=== PATIENT | male | born 1950 | race Hispanic/Latino ===

== ENCOUNTER 2020-10-24 06:46 | Day surgery (SDC) | payer OTHER ==
[2020-10-20 15:13] LABS: Basophils % 0.4 % (0-1.3); Hematocrit 46.8 % (39.6-49.0); Lymphocytes % 28.6 % (15.3-44.8); MPV 8.4 fL (7.6-11.3); RBC Red Blood Cell Count 5.28 M/uL (4.33-5.43)
[2020-10-20 15:20] LABS: Potassium 4.3 mmol/L (3.5-5.1)
--- NOTE | 2020-10-20 15:20 | RAD REPORT ---
EXAM DESCRIPTION: RAD - Chest Pa And Lat (2 Views) - 10/20/2020 3:05 pm CLINICAL HISTORY: preop COMPARISON: No comparisons FINDINGS: No evidence of edema or pneumonia. The heart size is within normal limits.No acute osseous abnormality. No significant pleural effusions or pneumothorax. IMPRESSION: No acute cardiopulmonary disease.
[2020-10-24] MEDS ORDERED: CEFAZOLIN/SWI 1gm 1 GM/10 ML SYR ONE (07:30)
[2020-10-24] MEDS ORDERED: NA CHLORIDE 0.9% 1,000 ML ONE (07:30)
[2020-10-24] MEDS ORDERED: MIDAZOLAM HCL 2 MG/2 ML INJ ONE (08:47)
[2020-10-24] MEDS ORDERED: LIDOCAINE 1% MPF 5 ML VIAL ONE (08:53)
[2020-10-24] MEDS ORDERED: FENTANYL CITR 100 MCG/2 ML ONE (08:53)
[2020-10-24] MEDS ORDERED: propofoL 200 MG/20 ML VIAL IV ONE (08:53)
[2020-10-24] MEDS ORDERED: ONDANSETRON 4 MG/2 ML VIAL ONE (09:01)
--- NOTE | 2020-10-24 09:01 | P.BOP ---
Preoperative diagnosis: tender perineal mass Postoperative diagnosis: same Primary procedure: Excisional biopsy of tender perineal subQ mass 4 x 2.5 cm Estimated blood loss: <10cc Specimen: mass Anesthesia: General Complications: None Transferred to: Recovery Room Condition: Good
[2020-10-24] MEDS ORDERED: KETOROLAC 30 MG/ML INJ ONE (09:02)
[2020-10-24 09:39] VITALS: O2SAT 98
[2020-10-24] MEDS ORDERED: CODEINE 30MG/APAP 300MG TAB PO ONE (09:59)
[2020-10-24] MEDS ORDERED: CODEINE 30MG/APAP 300MG TAB ONE (10:08)
[2020-10-24 10:30] VITALS: BP 107/64; TEMP 97.6
--- NOTE | 2020-10-24 10:45 | DS ---
Diagnosis: Tender perineal mass. Procedure: Excisional biopsy of tender perineal subcutaneous mass. Disposition: Home. Activity: As tolerated. No heavy lifting. Plan: Follow up in my office in 1 week. Call for appointment at [phone]. Keep area dry for 48 miriam rs, then may shower with dressings off and apply triple antibiotics. Medications: Include Tylenol No.3 q.4 hours p.r.n. pain, Bactrim DS p.o. b.i.d. CASSANDRA/IHSAN Voice ID: [id number] Report ID: [id number]
--- NOTE | 2020-10-24 11:00 | OP ---
Date of Procedure: 10/24/2020 Surgeon: Joe Steele MD Preoperative Diagnosis: Tender perineal mass. Postoperative Diagnosis: Tender perineal mass. Procedure: Excisional biopsy of tender perineal subcutaneous mass 4 x 2.5 cm. Estimated Blood Loss: Less than 10 mL. Specimen: Mass. Anesthesia: General plus local. Complications: None. Findings: Peritoneal mass not only pushing the skin subcutaneous tissue. This was closed in layers. Indication: This is the case of a 70-year-old patient with a perineal mass increasing in size, came in discomfort. The patient wanted that excised. Benefits, alternatives, and risks of excisional bio psy were fully explained, which include, but not limited to infection, bleeding, damage to adjacent s tructures, anesthesia complication, recurrence, MT and even . He also understands this may not relieve any symptoms. He might need more than one surgical intervention. He understood, signed a co nsent. Procedure In Detail: The patient was brought to the operating room, placed in supine position. Anes thesia was done without complication. The area was previously marked by me and the patient in the ho lding room, so we prepped the area in lithotomy position and time-out was done. A wedge incision was made in the skin to include the skin, the subcutaneous mass and then we with blunt dissection went d eep inside in that perineum and found this mass present. Mass was completely excised. Area was irri gated. Due to the cavity in that area, we proceeded to close this in layers with 3-0 chromic in 2 la yers and then the skin with 3-0 nylon. Before that, we injected local anesthetic, obtained hemostasi s and irrigated the area. The patient tolerated the procedure well. Sponge counts and instrument co unts correct. The patient was sent to recovery in stable condition. CASSANDRA/JUNIEL Voice ID: [id number] Report ID: [id number]
== END 2020-10-24 10:08 | disposition home or self-care (01) ==
LOC: OR 06:46
PROVIDERS: ATTEND Surgery
PROC: 0JBB0ZZ Excision of Perineum Subcutaneous Tissue and Fascia, Open Approach (ICD-10-PCS; principal; 2020-10-24 08:30)
DX: R22.2 Localized swelling, mass and lump, trunk (principal); Z20.822 Contact with and (suspected) exposure to COVID-19
CPT/HCPCS: 93005; 85025; 80048; 36415; 82947 ×2; 88304; 71046; 11424; U0003; J2704; J2250; J3010; J0690; J7030; J2405; 88305

== ENCOUNTER 2021-11-26 13:55 | Inpatient (IN) | payer OTHER ==
--- OUTSIDE RECORDS SUMMARY | 2021-11-26 13:58 | XMS REPORT | Continuity of Care Document ---
:1950 Author Organization [facility] t Address [address] [place] [address] Care Team Providers Name Role Phone Jaison Roth Neo Primary Care Physician Robe Cardenas Attending Clinician Unavailable GHULAM NEWSOME Attending Clinician Unavailable Nurse, Nadege Pob Immunization Attending Clinician Unavailable Ghulam Newsome DO Attending Clinician Darlene Evans Attending Clinician Doctor Unassigned, [place] Attending Clinician Unavailable Lilian Ruby Attending Clinician Provider, [facility] Attending Clinician Unavailable Kelly Garcia Attending Clinician KELLY CABA Attending Clinician Unavailable Payers Payer Name Policy Type Policy Number Effective Date Expiration Date Jose houser Outlisten [id number] 2020 00:00:00 SPRING Problems Condition Condition Condition Status Onset Resolution Last Treating Co mments Source Name Details Category Date Date Treatment Clinician Date No known No known Disease Unive rs active active ity of problems problems [facility] Allergies, Adverse Reactions, Alerts Allergy Allergy Status Severity Reaction(s) Onset Inactive Treating Comm ents Source Name Type Date Date Clinician NO KNOWN Drug Active Univers ALLERGIE Class ity of S [facility] Social History Social Habit Start Date Stop Date Quantity Comments Source Exposure to Not sure [facility] SARS-CoV-2 (event) Medica l Branch Tobacco use and 2020-09-18 2020-09-18 Never used [facility] exposure 00:00:00 00:00:00 [facility] Sex Ass[birth year] [facility] 00:00:00 00:00:00 Medical Branch Smoking Status Start Date Stop Date Source Never smoker [facility] Branch Medications Ordered Filled Start Stop Current Ordering Indication Dosage Frequency Signature Comments Components Source Medication Medication Date Date Medication? Clinician (SIG) Name Name traMADoL 50 0 Yes 4647 50mg Take 1 Univ ers mg tablet 6-27 tablet by ity o f 00:00: mouth [place] 00 every 6 Medical (six) Branch hours as needed for Pain (scale 4-6) for up to 15 doses. Indication s: acute pain traMADoL 50 0 Yes 4647 50mg Take 1 Univ ers mg tablet 6-27 tablet by ity o f 00:00: mouth [place] 00 every 6 Medical (six) Branch hours as needed for Pain (scale 4-6) for up to 15 doses. Indication s: acute pain traMADoL 50 Yes 4647 50mg Take 1 Univ ers mg tablet 6-27 tablet by ity o f 00:00: mouth [place] 00 every 6 Medical (six) Branch hours as needed for Pain (scale 4-6) for up to 15 doses. Indication s: acute pain traMADoL 50 Yes 4647 50mg Take 1 Univ ers mg tablet 6-27 tablet by ity o f 00:00: mouth [place] 00 every 6 Medical (six) Branch hours as needed for Pain (scale 4-6) for up to 15 doses. Indication s: acute pain atorvastati Yes 10mg Take 10 mg Univers n 10 mg 6-10 by mouth ity of tablet 00:00: daily. Medical Branch gabapentin Yes TAKE 1 Unive rs 300 mg 6-10 CAPSULE BY ity of capsule 00:00: [place]OUTH [place]CE [place] 00 DAILY FOR Medical 90 DAYS Branch lisinopriL Yes 20mg Take 20 mg U nivers 20 mg 6-10 by mouth 2 ity of tablet 00:00: (two) [place] 00 times Medical daily. Branch atorvastati Yes 10mg Take 10 mg Univers n 10 mg 6-10 by mouth ity of tablet 00:00: daily. Medical Branch gabapentin Yes TAKE 1 Unive rs 300 mg 6-10 CAPSULE BY ity of capsule 00:00: [place]TH [place]CE [place] DAILY FOR [place] 90 DAYS Branch lisinopriL Yes 20mg Take 20 mg U nivers 20 mg 6-10 by mouth 2 ity of tablet 00:00: (two) 00 times Medical daily. Branch atorvastati 2020-0 Yes 10mg Take 10 mg Univers n 10 mg 6-10 by mouth ity of tablet 00:00: daily. Medical Branch gabapentin 2020-0 Yes TAKE 1 Unive rs 300 mg 6-10 CAPSULE BY ity of capsule 00:00: [place]TH [place]CE [place] DA[place] FOR [place] 90 DAYS Branch lisinopriL 2020-0 Yes 20mg Take 20 mg U nivers 20 mg 6-10 by mouth 2 ity of tablet 00:00: (two) 00 times Medical daily. Branch atorvastati 2020-0 Yes 10mg Take 10 mg Univers n 10 mg 6-10 by mouth ity of tablet 00:00: daily. Medical Branch gabapentin 2020-0 Yes TAKE 1 Unive rs 300 mg 6-10 CAPSULE BY ity of capsule 00:00: [place]CE [place] DA[place] FOR [place] 90 DAYS Branch lisinopriL 2020-0 Yes 20mg Take 20 mg U nivers 20 mg 6-10 by mouth 2 ity of tablet 00:00: (two) 00 times Medical daily. Branch atorvastati 2020-0 Yes 10mg Take 10 mg Univers n 10 mg 6-10 by mouth ity of tablet 00:00: daily. Medical Branch gabapentin 2020-0 Yes TAKE 1 Unive rs 300 mg 6-10 CAPSULE BY ity of capsule 00:00: [place]TH ONCE [place] DAILY FOR [place] 90 DAYS Branch lisinopriL 2020-0 Yes 20mg Take 20 mg U nivers 20 mg 6-10 by mouth 2 ity of tablet 00:00: (two) 00 times Medical daily. Branch atorvastati 2020-0 Yes 10mg Take 10 mg Univers n 10 mg 6-10 by mouth ity of tablet 00:00: daily. Medical Branch gabapentin 2020-0 Yes TAKE 1 Unive rs 300 mg 6-10 CAPSULE BY ity of capsule 00:00: [place]OUTH ONCE [place] 00 DAILY FOR Medical 90 DAYS Branch lisinopriL 2020-0 Yes 20mg Take 20 mg U nivers 20 mg 6-10 by mouth 2 ity of tablet 00:00: (two) 00 times Medical daily. Branch Immunizations Ordered Filled Immunization Date Status Comments [facility] e Immunization Name Name SARS-COV-2 COVID-19 2021-02-28 Completed Unive rsity of PFIZER VACCINE 00:00:00 [facility] SARS-COV-2 COVID-19 2020-06-07 Completed Unive rsity of PFIZER VACCINE 00:00:00 [facility] SARS-COV-2 COVID-19 2020-06-07 Completed Unive rsity of PFIZER VACCINE 00:00:00 [facility] SARS-COV-2 COVID-19 2020-06-07 Completed Unive rsity of PFIZER VACCINE 00:00:00 [facility] SARS-COV-2 COVID-19 2020-06-07 Completed Unive rsity of PFIZER VACCINE 00:00:00 [facility] SARS-COV-2 COVID-19 2020-06-07 Completed Unive rsity of PFIZER VACCINE 00:00:00 [facility] SARS-COV-2 COVID-19 2020-06-07 Completed Unive rsity of PFIZER VACCINE 00:00:00 [facility] SARS-COV-2 COVID-19 2020-05-17 Completed Unive rsity of PFIZER VACCINE 00:00:00 [facility] SARS-COV-2 COVID-19 2020-05-17 Completed Unive rsity of PFIZER VACCINE 00:00:00 [facility] SARS-COV-2 COVID-19 2020-05-17 Completed Unive rsity of PFIZER VACCINE 00:00:00 [facility] SARS-COV-2 COVID-19 2020-05-17 Completed Unive rsity of PFIZER VACCINE 00:00:00 [facility] SARS-COV-2 COVID-19 2020-05-17 Completed Unive rsity of PFIZER VACCINE 00:00:00 [facility] SARS-COV-2 COVID-19 2020-05-17 Completed Unive rsity of PFIZER VACCINE 00:00:00 [facility] Vital Signs Vital Name Observation Time Observation Value Comments Source Systolic blood 2020-09-19 152 mm[Hg] University of pressure 03:16:00 [facility] Diastolic blood 2020-09-19 86 mm[Hg] University o f pressure 03:16:00 [facility] Heart rate 2020-09-19 64 /min University 03:16:00 [facility] Body temperature 2020-09-19 36.44 Fiorella [facility] 03:16:00 [facility] Respiratory rate 2020-09-19 18 /min Simultaneous [facility] 03:16:00 filing. User may [place] [facility] not have seen Branch previous data. Oxygen saturation 2020-09-19 96 /min Simultaneous [facility] in Arterial blood 03:16:00 filing. User may [place] [facility] by Pulse oximetry not have seen Branch previous data. Body height 2020-09-19 170.2 cm [facility] 00:39:00 [facility] Body weight 2020-09-19 93.441 kg University 00:39:00 [facility] BMI 2020-09-19 32.26 kg/m2 University 00:39:00 [facility] Systolic blood 2020-09-19 150 mm[Hg] University of pressure 00:12:00 [facility] Diastolic blood 2020-09-19 82 mm[Hg] [place] o f pressure 00:12:00 [facility] Heart rate 2020-09-19 69 /min [facility] 00:07:00 [facility] Body temperature 2020-09-19 36.67 Fiorella University 00:07:00 [facility] Respiratory rate 2020-09-19 16 /min [facility] 00:07:00 [facility] Body height 2020-09-19 170.2 cm [facility] 00:07:00 [facility] Body weight 2020-09-19 93.441 kg [facility] 00:07:00 [facility] BMI 2020-09-19 32.26 kg/m2 [facility] 00:07:00 [facility] Oxygen saturation 2020-09-19 97 /min [facility] in Arterial blood 00:07:00 [facility] by Pulse oximetry [place] Procedures Procedure Date / Time Performing Clinician Source Performed SARS-COV-2 COVID-19 2021-02-28 22:40:58 Doctor Unassigned, [facility] VACCINE,0.3ML,IM (PFIZER) [place] Med[facility] l [facility] REFERRAL- REQUEST/RESPONSE 2020-09-27 05:01:00 Doctor Unassigned , [facility] [place] [facility] XR KNEE 3 VW RIGHT 2020-09-19 02:34:41 Lilian Pereira [facility] XR TIBIA FIBULA 2 VW RIGHT 2020-09-19 02:34:41 Lilian Pereira [facility] NOTICE OF PRIVACY 2020-09-19 00:36:02 Doctor Unassigned, [facility] PRACTICES [place] [facility] PATIENT FINANCIAL 2020-09-19 00:03:03 [facility]IC[facility] [place] [facility] NO SHOW OR MISSED 2020-09-19 00:02:30 Doctor Unassigned, [facility] APPOINTMENT POLICY [place] [facility] h ACKNOWLEDGEMENT NOTICE OF PRIVACY 2020-09-19 00:01:29 Doctor Unassigned, [facility] PRACTICES [place] [facility] CONSENT/REFUSAL FOR 2020-09-19 00:01:02 Doctor Unasssvetlana, [facility] DIAGNOSIS AND TREATMENT [place] [facility] ASSIGNMENT OF BENEFITS 2020-09-19 00:00:31 Doctor Unassigned, Un [facility] [place] [facility] Encounters Start End Encounter Admission Attending Care Care Encounter Source Date/Time Date/Time Type Type Clinicians Facility Department ID 2021-11-23 Outpatient Theresa STCHRISSVA [facility] [id number] Common 10:26:04 Robe [id number] [facility] 2021-01-23 Emergency [facility] [id number] Univers 04:09:32 [facility] 2021-02-28 2021-02-28 Outpatient Byron NEWSOME [facility] [id number] Univers 16:20:00 16:20:00 GHULAM live [facility] 2021-02-28 2021-02-28 Imm/Inj Nurse, Adc Pob Immunization [facility] [id number] Univers 16:16:55 16:17:27 [facility]ul[id number] [id number] [place] MONREAL [phone] Ny dical NAL [address] [place] [address] 2020-10-20 2020-10-20 Letter CORRINE Evans [id number] Univers 00:00:00 00:00:00 (Out) Darlene MENDEZ [id number] i ty of [facility] [id number] Adrian as [phone] [facility] 043 Branch 2020-09-27 2020-09-27 Orders Doctor CORRINE [id number] Univers 00:00:00 00:00:00 Only Unassigned, VANESSA [id number] ity of [place] [facility] [id number] Adrian as [id number] [facility] 009 Branch 2020-09-18 2020-09-18 Emergency [facility], [facility] [id number] Univers 19:38:00 22:29:00 Lilian Box [id number] ity of [place] [id number] [place] [facility] [id number] [facility] 084 Branch 2020-09-18 2020-09-18 Urgent Provider, [facility] [id number] Univers 19:03:12 19:23:12 Vianey Caba Kelly [facility] [id number] ity of [place] [id number] Adrian as Professio [id number] [facility] [address] [place] 2020-09-18 2020-09-18 Outpatient Byron CABA [facility] [id number] Univers 19:00:00 19:00:00 KELLY ity of [facility] 2020-09-18 2020-09-18 Orders Doctor CORRINE [id number] Univers 00:00:00 00:00:00 Only Unassigned, VANESSA [id number] ity of [place] [facility] [id number] Adrian as [phone] [facility] 009 [place] Results This patient has no known results.
[2021-11-26 15:04] LABS: Urine Blood 3+ (Negative); Urine Glucose Negative (Negative); Urine Protein 1+ (Negative); Urine Specific Gravity 1.025 (1.005-1.030); Urine pH 5.5 (5.0-7.0)
[2021-11-26 15:16] LABS: Absolute Lymphocytes (CBC) 1.1 K/uL (0.7-4.9); Hematocrit 43.5 % (39.6-49.0); Lymphocytes % 7.2 % (15.3-44.8); MCV 89.3 fL (80-100); MPV 8.8 fL (7.6-11.3); RBC Red Blood Cell Count 4.87 M/uL (4.33-5.43)
[2021-11-26 15:20] LABS: Protime INR 1.29
[2021-11-26 15:31] LABS: Albumin 3.5 g/dL (3.4-5.0); Bilirubin Total 1.4 mg/dL (0.2-1.0); Potassium 3.7 mmol/L (3.5-5.1); Protein, Total 7.3 g/dL (6.4-8.2)
[2021-11-26 15:32] LABS: Urine Bacteria 20-50 /HPF (<20); Urine Mucus 3+ /HPF (None Seen); Urine RBC >50 /HPF (None Seen); Urine WBC Clump Few /HPF (None Seen)
[2021-11-26] MEDS ORDERED: CEFTRIAXONE 1000 MG/VIAL ONE (16:01)
[2021-11-26] MEDS ORDERED: NA CHLORIDE 0.9% 50 ML ONE (16:02)
[2021-11-26 17:16] LABS: SARS-CoV-2 Antigen Rapid Res Negative (Negative)
--- NOTE | 2021-11-26 17:38 | EDPHYS ---
Physician Documentation [facility] Name: Jaime Cid Age: 71 yrs Sex: Male : 1950 Arrival Date: 11/26/2021 Time: 13:56 Bed 8 Private MD: Robe Cardenas ED Physician Ashwin Rodney HPI: 11/26 14:25 This 71 yrs old Male presents to ER via Unassigned with complaints of Fever - cp post biopsy 11/23, chills. 14:25 The patient reports fever, that was measured at 101.1 degrees Fahrenheit. cp 14:25 Onset: The symptoms/episode began/occurred today. Associated signs and symptoms: cp Pertinent positives: chills, Pertinent negatives: abdominal pain, chest pain, cough, diarrhea, vomiting. Severity of symptoms: in the emergency department the symptoms have improved mildly. Patient reports having biopsy of prostate performed by DR Harmon this past . Initially noticed blood in urine after procedure which he was told is normal, denies blood in urine now. Historical: - Allergies: 14:33 No Known Allergies; em6 - Immunization history:: Adult Immunizations unknown. - Social history:: Smoking status: unknown. ROS: 14:30 Constitutional: Positive for chills, Negative for fever, poor PO intake. cp 14:30 Respiratory: Negative for cough, shortness of breath, wheezing. cp 14:30 Abdomen/GI: Negative for abdominal pain, vomiting, diarrhea, constipation. 14:30 Cardiovascular: Negative for chest pain, edema, palpitations. cp 14:30 Eyes: Negative for injury, pain, redness, and discharge. cp 14:30 ENT: Negative for drainage from ear(s), ear pain, sore throat, difficulty swallowing, difficulty handling secretions. 14:30 Back: Negative for pain at rest, pain with movement. 14:30 : Negative for hematuria, burning with urination, testicular pain 14:30 Skin: Negative for cellulitis, rash. 14:30 Neuro: Negative for altered mental status, dizziness, headache, weakness. 14:30 All other systems are negative. Exam: 14:35 Constitutional: The patient appears in no acute distress, alert, awake, cp non-diaphoretic, non-toxic, well developed, well nourished. 14:35 Head/Face: Normocephalic, atraumatic. cp 14:35 Eyes: Periorbital structures: appear normal, Conjunctiva: normal, no exudate, no injection, Sclera: no appreciated abnormality, Lids and lashes: appear normal, bilaterally. 14:35 ENT: External ear(s): are unremarkable, Nose: is normal, Mouth: Lips: moist, Oral mucosa: pink and intact, moist, Posterior pharynx: Airway: no evidence of obstruction, patent, swelling, is not appreciated, erythema, is not appreciated, exudate, is not appreciated. 14:35 Neck: ROM/movement: is normal, is supple, without pain, no range of motions limitations, no meningismus. 14:35 Chest/axilla: Inspection: normal, Palpation: is normal, no crepitus, no tenderness. 14:35 Cardiovascular: Rate: normal, Rhythm: regular, Edema: is not appreciated, JVD: is not appreciated. 14:35 Respiratory: the patient does not display signs of respiratory distress, Respirations: normal, no use of accessory muscles, no retractions, labored breathing, is not present, Breath sounds: are clear throughout, no decreased breath sounds, no stridor, no wheezing. 14:35 Abdomen/GI: Inspection: abdomen appears normal, Bowel sounds: active, all quadrants, Palpation: abdomen is soft and non-tender, in all quadrants. 14:35 Back: CVA tenderness, is absent. 14:35 Skin: cellulitis, is not appreciated, no rash present. 14:35 Neuro: Orientation: to person, place \T\ time. Mentation: is normal, Motor: moves all fours, strength is normal, Sensation: is normal. 15:09 ECG was reviewed by the Attending Physician. cp Vital Signs: 14:19 BP 130 / 77; Pulse 88; Resp 16; Temp 98.2(TE); Pulse Ox 98% on R/A; hb 15:30 BP 121 / 72; Pulse 72; Resp 17; Pulse Ox 98% ; em6 16:30 BP 117 / 61; Pulse 78; Resp 20; Pulse Ox 96% on R/A; em6 17:30 BP 122 / 70; Pulse 90; Resp 17; Pulse Ox 97% on R/A; em6 18:47 BP 125 / 78; Pulse 85; Resp 19; Pulse Ox 96% ; em6 19:19 BP 125 / 70; Pulse 91; Resp 18; Pulse Ox 96% on R/A; tw5 20:23 Temp 103.2(O); tw5 MDM: 14:24 Patient medically screened. cp 15:00 Differential diagnosis: bronchitis, pneumonia UTI, sepsis. 16:15 Data reviewed: vital signs, nurses notes, lab test result(s), EKG. 16:15 Test interpretation: by ED physician or midlevel provider: ECG. 16:30 ED course: Daughter reports patient did not have rectal swab performed prior to cp prostate biopsy procedure. Patient did take course of prescribed antibiotics. 16:37 Physician consultation: Henry Harmon MD was contacted at 16:30, regarding patient's cp condition, wants patient to be admitted for IV antibiotics. 16:38 Physician consultation: Robe Cardenas MD was called at 16:39, left message on voicemail. cp 17:11 ED course: left message on voicemail of DR Cardenas. 17:30 Physician consultation: Robe Cardenas MD was contacted at 17:30, regarding admission, to the medical/surgical unit. patient's condition. 11/26 14:27 Order name: Blood Culture Adult (2) 11/26 14:27 Order name: CBC with Diff; Complete Time: 15:37 11/26 15:37 Interpretation: Normal except: WBC 16.00; KENZIE% 84.5; LYM% 7.2; NEUT A 13.5. 11/26 14:27 Order name: CMP; Complete Time: 15:37 11/26 15:37 Interpretation: Normal except: NA 133; GLUC 113; BUN 21; GFR 86; BILIT 1.4; GLOB 3.8; cp A/G 0.9. 11/26 14:27 Order name: Lactate; Complete Time: 16:12 11/26 16:13 Interpretation: Reviewed. 11/26 14:27 Order name: Protime (+inr); Complete Time: 15:37 11/26 15:38 Interpretation: Abnormal: PT 14.3. 11/26 14:27 Order name: Ptt, Activated; Complete Time: 15:37 11/26 14:27 Order name: Urine Culture 11/26 14:27 Order name: Urine Microscopic Only; Complete Time: 15:37 cp 11/26 15:38 Interpretation: Normal except: UWBC >50; URBC >50; UBACT 20-50; MUCUS 3+; UWBC Clump cp Few. 11/26 15:04 Order name: Urine Dipstick-Ancillary; Complete Time: 15:37 EDMS 11/26 15:38 Interpretation: Normal except: UBLD 3+; UPROT 1+; UESTR 1+. cp 11/26 15:21 Order name: Glucose, Ancillary Testing; Complete Time: 15:37 EDMS 11/26 16:33 Order name: SARS RAPID; Complete Time: 20:21 cp 11/26 17:52 Order name: Basic Metabolic Panel EDMS 11/26 17:52 Order name: Basic Metabolic Panel EDMS 11/26 17:52 Order name: CBC with Automated Diff EDMS 11/26 14:27 Order name: Accucheck; Complete Time: 15:09 cp 11/26 14:27 Order name: Cardiac monitoring; Complete Time: 15:09 cp 11/26 14:27 Order name: EKG - Nurse/Tech; Complete Time: 15:09 cp 11/26 14:27 Order name: IV Saline Lock - Large Bore; Complete Time: 15:09 cp 11/26 14:27 Order name: Labs collected and sent; Complete Time: 15:09 cp 11/26 14:27 Order name: O2 Per Protocol; Complete Time: 14:54 cp 11/26 14:27 Order name: O2 Sat Monitoring; Complete Time: 14:54 cp 11/26 14:27 Order name: Urine Dipstick-Ancillary (obtain specimen); Complete Time: 15:30 cp 11/26 17:52 Order name: CBC with Automated Diff EDMS 11/26 17:58 Order name: 60g Consistent Carbohydrate (ADA 1800/2000) EDMS EC:09 Rate is 74 beats/min. Rhythm is regular. SC interval is normal. QRS interval is normal. cp QT interval is normal. T waves are Inverted in lead aVR. Interpreted by me. Reviewed by me. Administered Medications: 15:55 Drug: Rocephin - (cefTRIAXone) 1 grams Route: IVPB; Infused Over: 30 mins; Site: right em6 antecubital; 16:27 Follow up: IV Status: Completed infusion; IV Intake: 50ml em6 Disposition: 11/27 07:07 Co-signature as Attending Physician, Ashwin Rodney MD I agree with the assessment and kdr plan of care. Disposition Summary: 11/26/21 17:38 Hospitalization Ordered Hospitalization Status: Inpatient Admission cp Provider: Robe Cardenas cp Location: Telemetry/MedSur (Inpatient) cp Condition: Stable cp Problem: new cp Symptoms: have improved cp Bed/Room Type: Standard cp Room Assignment: 428(11/26/21 19:59) cg Diagnosis - UTI/ Urinary tract infection, site not specified cp Forms: - Medication Reconciliation Form cp - SBAR form cp Signatures: Dispatcher [employer] EDMS Ashwin Rodney MD MD [facility] Lavell Moran, [employer]-C [employer]-Cla1 Eris Pierce PA PA cp Bre Calderon, RN RN cg Florinda Steele RN RN em6 Corrections: (The following items were deleted from the chart) 11/26 15:37 15:37 Normal except: WBC 16.00. cp cp 17:58 17:52 Regular ordered. EDMS EDMS 19:59 17:38 cp cg
--- NOTE | 2021-11-26 17:38 | ER ---
Nurse's Notes [facility] Name: Jaime Cid Age: 71 yrs Sex: Male : 1950 Arrival Date: 11/26/2021 Time: 13:56 Bed 8 Private MD: Robe Cardenas Diagnosis: UTI/ Urinary tract infection, site not specified Presentation: 11/26 14:19 Chief complaint: Patient states: having a temperature of of 101.1 and was told to come em6 to the ER if the temperature was high after his biopsy on 10/24/21. he states having burning sensation while urinating and frequency. he took 500 mg of Tylenol. Coronavirus screen: At this time, the client does not indicate any symptoms associated with coronavirus-19. Ebola Screen: Patient negative for fever greater than or equal to 101.5 degrees Fahrenheit, and additional compatible Ebola Virus Disease symptoms. Initial Sepsis Screen: Does the patient meet any 2 criteria? No. Patient's initial sepsis screen is negative. Does the patient have a suspected source of infection? Yes: Other: prostate biopsy. Risk Assessment: Do you want to hurt yourself or someone else? Patient reports no desire to harm self or others. Onset of symptoms was November 26, 2021. 14:19 Method Of Arrival: Ambulatory em6 14:19 Acuity: ADITI 3 em6 Triage Assessment: 14:33 General: Appears in no apparent distress. comfortable, Behavior is calm, cooperative, em6 appropriate for age. Pain: Denies pain. Historical: - Allergies: 14:33 No Known Allergies; em6 - Immunization history:: Adult Immunizations unknown. - Social history:: Smoking status: unknown. Screenin:19 Abuse screen: Denies threats or abuse. Nutritional screening: No deficits noted. em6 Tuberculosis screening: No symptoms or risk factors identified. Fall Risk IV access (20 points). Assessment: 14:19 General: Appears in no apparent distress. comfortable, Behavior is calm, cooperative, em6 appropriate for age, Smells of. Pain: Denies pain. Neuro: Woodruff Agitation-Sedation Scale (RASS): 0 - Alert and Calm Level of Consciousness is awake, alert, obeys commands, Oriented to person, place, time, situation. Cardiovascular: Heart tones present Capillary refill < 3 seconds Patient's skin is warm and dry. Respiratory: Airway is patent is compromised Respiratory effort is even, unlabored, Respiratory pattern is regular, symmetrical, Breath sounds are clear bilaterally. GI: Abdomen is distended. : Reports burning with urination, urgency. EENT: No signs and/or symptoms were reported regarding the EENT system. Derm: No signs and/or symptoms reported regarding the dermatologic system. Musculoskeletal: Circulation, motion, and sensation intact. Range of motion: intact in all extremities. 15:30 Reassessment: Patient appears in no apparent distress at this time. No changes from em6 previously documented assessment. Patient is alert, oriented x 3, equal unlabored respirations, skin warm/dry/pink. 16:30 Reassessment: Patient appears in no apparent distress at this time. No changes from em6 previously documented assessment. Patient and/or family updated on plan of care and expected duration. Pain level reassessed. Patient is alert, oriented x 3, equal unlabored respirations, skin warm/dry/pink. 17:30 Reassessment: Patient appears in no apparent distress at this time. No changes from em6 previously documented assessment. Patient and/or family updated on plan of care and expected duration. Pain level reassessed. Patient is alert, oriented x 3, equal unlabored respirations, skin warm/dry/pink. 18:45 Reassessment: Patient appears in no apparent distress at this time. No changes from em6 previously documented assessment. Patient and/or family updated on plan of care and expected duration. Pain level reassessed. Patient is alert, oriented x 3, equal unlabored respirations, skin warm/dry/pink. 19:19 General: Appears in no apparent distress. comfortable, Behavior is calm, cooperative, tw5 Daughter at the bedside "He is still having chills but otherwise he has been good.". Pain: Denies pain. 20:23 General: Tylenol being administered per [employer] orders. tw5 Vital Signs: 14:19 BP 130 / 77; Pulse 88; Resp 16; Temp 98.2(TE); Pulse Ox 98% on R/A; hb 15:30 BP 121 / 72; Pulse 72; Resp 17; Pulse Ox 98% ; em6 16:30 BP 117 / 61; Pulse 78; Resp 20; Pulse Ox 96% on R/A; em6 17:30 BP 122 / 70; Pulse 90; Resp 17; Pulse Ox 97% on R/A; em6 18:47 BP 125 / 78; Pulse 85; Resp 19; Pulse Ox 96% ; em6 19:19 BP 125 / 70; Pulse 91; Resp 18; Pulse Ox 96% on R/A; tw5 20:23 Temp 103.2(O); tw5 ED Course: 13:56 Patient arrived in ED. am2 13:57 Robe Cardenas MD is Private Physician. am2 14:13 Eris Pierce PA is PHCP. cp 14:13 Ashwin Rodney MD is Attending Physician. cp 14:20 Arm band placed on. hb 14:29 Valentino Mcmahan RN is Primary Nurse. jd3 14:33 Triage completed. em6 14:34 Patient has correct armband on for positive identification. Bed in low position. Call em6 light in reach. Side rails up X 1. Pulse ox on. NIBP on. Warm blanket given. 17:37 Robe Cardenas MD is Hospitalizing Provider. cp 19:02 Primary Nurse role handed off by Valentino Mcmahan, RN tw5 19:02 Shantell Estes is Primary Nurse. tw5 19:19 Awaiting bed assignment. tw5 19:19 IV is intact, ER initiated by prior shift. 20 G RAC. tw5 19:30 role handed off by Florinda Steele, CARLOS MANUEL mw2 20:20 No provider procedures requiring assistance completed. Patient admitted, IV remains in ke1 place. Administered Medications: 15:55 Drug: Rocephin - (cefTRIAXone) 1 grams Route: IVPB; Infused Over: 30 mins; Site: right em6 antecubital; 16:27 Follow up: IV Status: Completed infusion; IV Intake: 50ml em6 Medication: 14:34 VIS not applicable for this client. em6 Intake: 16:27 IV: 50ml; Total: 50ml. em6 Outcome: 17:38 Decision to Hospitalize by Provider. cp 20:23 Admitted to Med/surg room 428, Report called to called report to [facility] tw5 20:23 Condition: stable 20:23 Instructed on the need for admit. 20:37 Patient left the ED. ke1 Signatures: Eris Pierce PA PA cp Baxter, Heather, RN RN Todd, Jacki am2 Marj, Valentino, RN RN jd3 [place], [place] 2 Shantell Estes 5 Wally Donaldson RN RN ke1 Florinda Steele RN RN em6
[2021-11-26] MEDS ORDERED: ONDANSETRON 4 MG/2 ML VIAL IV PRN (17:48)
[2021-11-26] MEDS ORDERED: D50W 25 GM/50 ML SYRINGE IV PRN (17:55)
[2021-11-26] MEDS ORDERED: GLUCAGON 1 MG/VIAL IM PRN (17:55)
[2021-11-26] MEDS ORDERED: D10W 125 ML IV PRN (19:33)
[2021-11-26] MEDS: ACETAMINOPHEN 500 MG TAB PO PRN (20:25)
[2021-11-26] MEDS ORDERED: ACETAMINOPHEN 500 MG TAB ONE (20:34)
[2021-11-26] MEDS: INSULIN -REGULAR HUMAN 50 UNIT/0.5 ML ML SQ SCH (21:00)
[2021-11-26] MEDS: NA CHLORIDE 0.9% 1,000 ML IV SCH (21:48)
[2021-11-26] MEDS: CEFTRIAXONE 1,000 MG in NA CHLORIDE 0.9% 50 ML IVPB SCH (21:48)
[2021-11-27] MEDS: ACETAMINOPHEN 500 MG TAB PO PRN ×2 (04:18→16:22)
[2021-11-27] MEDS: NA CHLORIDE 0.9% 1,000 ML IV SCH ×2 (04:18→23:23)
[2021-11-27 06:10] LABS: Absolute Lymphocytes (CBC) 0.8 K/uL (0.7-4.9); Hematocrit 41.6 % (39.6-49.0); MCV 89.6 fL (80-100); MPV 8.8 fL (7.6-11.3); RBC Red Blood Cell Count 4.64 M/uL (4.33-5.43)
[2021-11-27 06:27] LABS: Potassium 3.9 mmol/L (3.5-5.1)
[2021-11-27] MEDS: INSULIN -REGULAR HUMAN 50 UNIT/0.5 ML ML SQ SCH ×4 (07:30→20:53)
[2021-11-27] MEDS: CEFTRIAXONE 1,000 MG in NA CHLORIDE 0.9% 50 ML IVPB SCH ×2 (08:08→20:51)
[2021-11-27] MEDS: HYDROCODONE/APAP 7.5/325 MG TAB PO PRN ×2 (10:28→20:49)
--- NOTE | 2021-11-27 11:32 | P.HP ---
Certification for Inpatient Patient admitted to: Inpatient With expected LOS: >2 Midnights Patient will require the following post-hospital care: None Practitioner: I am a practitioner with admitting privileges, knowledge of patient current condition, hospital course, and medical plan of care. Services: Services provided to patient in accordance with Admission requirements found in Title 42 Section 412.3 of the Code of Federal Regulations Patient History Date of Service: 11/27/21 Primary Care Provider: Irma Dodson Reason for admission: post operative infection History of Present Illness: Patient of Mrs. Dodson. H/o htn, dm2, bph. He had a prostate biopsy on . The patient started having increased pain and fevers the last day. Came to the ER. Was found to have positive urine and a wbc of 16. Was admitted for this reason for iv antibiotics. Given this is a post op diabetic. Allergies No Known Allergies Allergy (Verified 10/20/20 14:34) Home Medications: Lisinopril [Zestril] 20 mg PO BID 10/20/20 Semaglutide [Rybelsus] 3 mg PO DAILY 10/20/20 Codeine/APAP [Tylenol W/Codeine #3 tab] 1 tab PO Q4HP PRN #20 tab 10/24/20 Sulfamethoxazole/Trimethoprim [Bactrim Ds Tablet] 1 each PO BID #12 tablet 10/24/20 Atorvastatin Calcium [Lipitor] 20 mg PO BEDTIME 11/26/21 Tamsulosin [Flomax] 0.4 mg PO BEDTIME 11/26/21 - Past Medical/Surgical History Has patient received pneumonia vaccine in the past: No Diabetic: Yes - Social History Smoking Status: Never smoker Alcohol use: No CD- Drugs: No Caffeine use: Yes Place of Residence: Home Review of Systems 10-point ROS is otherwise unremarkable Genitourinary: Other (pain at the groin ) Physical Examination - Vital Signs Temperature: 98.5 F Blood Pressure: 112/55 Pulse: 85 Respirations: 18 Pulse Ox (%): 97 - Physical Exam General: Alert, In no apparent distress HEENT: Atraumatic, PERRLA, Mucous membr. moist/pink, EOMI, Sclerae nonicteric Neck: Supple, 2+ carotid pulse no bruit, No LAD, Without JVD or thyroid abnormality Respiratory: Clear to auscultation bilaterally, Normal air movement Cardiovascular: Regular rate/rhythm, Normal S1 S2 Gastrointestinal: Normal bowel sounds, No tenderness Musculoskeletal: No tenderness Integumentary: No rashes Neurological: Normal gait, Normal speech, Normal strength at 5/5 x4 extr, Normal tone, Normal affect Lymphatics: No axilla or inguinal lymphadenopathy - Studies Laboratory Data (last 24 hrs) 11/26/21 14:48: PT 14.3 H, INR 1.29, APTT 32.0 11/26/21 14:48: Sodium 133 L, Potassium 3.7, BUN 21 H, Creatinine 0.96, Glucose 113 H, Total Bilirubin 1.4 H, AST 17, ALT 30, Alkaline Phosphatase 65 11/26/21 14:48: WBC 16.00 H, Hgb 14.6, Hct 43.5, Plt Count 170 Assessment and Plan - Problems (Diagnosis) (1) Prostatitis, acute Current Visit: Yes Status: Acute Plan: most likely post op. Have him on fluids and ceftriaxone. Will need to manage his pain better. Awaiting culture reports so we can discharge him on a specific antibiotic (2) HTN (hypertension) Current Visit: Yes Status: Acute Plan: currently low bp. Will hold his lisinopril. He usually takes 20mg. Will restart it if his bp starts trending upwards. (3) Diabetes mellitus with neuropathy Current Visit: Yes Status: Acute Plan: he only takes rybelsus and gabapentin. Will restart the gabapentin. Will start him on sliding scale insulin Qualifiers: Diabetes mellitus type: type 2 Diabetes mellitus longterm insulin use: without rat exterminator use Qualified Code(s): E11.40 - Type 2 diabetes mellitus with diabetic neuropathy, unspecified (4) BPH (benign prostatic hyperplasia) Current Visit: Yes Status: Acute Plan: restart his tamusolin Qualifiers: Lower urinary tract symptom presence: symptoms absent Qualified Code(s): N40.0 - Benign prostatic hyperplasia without lower urinary tract symptoms Discharge Plan: Home Plan to discharge in: 24 Hours - Advance Directives Does patient have a Living Will: No Does patient have a Durable POA for Healthcare: No - Code Status/Comfort Care Code Status Assessed: Yes Code Status: Full Code Critical Care: No Time Spent Managing Pts Care (In Minutes): 45
[2021-11-27] MEDS ORDERED: GLUCAGON 1 MG/VIAL IM PRN (11:35)
[2021-11-27] MEDS ORDERED: D50W 25 GM/50 ML SYRINGE IV PRN (11:35)
[2021-11-27] MEDS ORDERED: MORPHINE 2 MG/ML SYR IV PRN (11:35)
[2021-11-27] MEDS ORDERED: PNEUMOCOCCAL VACCINE 0.5 ML IMVAC ONE (14:00)
[2021-11-27] MEDS: ATORVASTATIN 20 MG TAB PO SCH (20:45)
[2021-11-27] MEDS: TAMSULOSIN 0.4 MG SR CAP PO SCH (20:45)
[2021-11-27] MEDS: GABAPENTIN 300 MG CAP PO SCH (20:46)
[2021-11-28] MEDS: ACETAMINOPHEN 500 MG TAB PO PRN ×3 (00:20→20:44)
[2021-11-28] MEDS: HYDROCODONE/APAP 7.5/325 MG TAB PO PRN ×2 (06:39→15:25)
[2021-11-28] MEDS: INSULIN -REGULAR HUMAN 50 UNIT/0.5 ML ML SQ SCH ×4 (07:30→21:00)
--- NOTE | 2021-11-28 07:50 | P.PN ---
Subjective Date of Service: 11/28/21 Primary Care Provider: Irma Dodson Chief Complaint: post operative infection Subjective: No new changes Review of Systems 10-point ROS is otherwise unremarkable General: Fever Genitourinary: Dysuria Physical Examination - Vital Signs Temperature: 99.1 F Blood Pressure: 112/60 Pulse: 71 Respirations: 16 Pulse Ox (%): 96 - Physical Exam General: Alert, In no apparent distress HEENT: Atraumatic, PERRLA, EOMI Neck: Supple, JVD not distended Respiratory: Clear to auscultation bilaterally, Normal air movement Cardiovascular: Regular rate/rhythm, Normal S1 S2 Gastrointestinal: Normal bowel sounds, No tenderness Musculoskeletal: No tenderness Integumentary: No rashes Neurological: Normal speech, Normal tone, Normal affect Lymphatics: No axilla or inguinal lymphadenopathy - Studies Microbiology Data (last 24 hrs): 11/26/21 15:03 Clean Catch Urine Danese Count - Final >100,000 CFU/ML. 11/26/21 15:03 Clean Catch Urine - Final Escherichia Coli Esbl Assessment And Plan - Current Problems (Diagnosis) (1) UTI (urinary tract infection) due to Enterococcus Current Visit: Yes Status: Acute Plan: esbl e coli in the urine culture. Will switch to meropenenem for 2 weeks. Will order a picc line and social service consult (2) Prostatitis, acute Current Visit: Yes Status: Acute Plan: most likely post op. Have him on fluids and ceftriaxone. Will need to manage his pain better. Awaiting culture reports so we can discharge him on a specific antibiotic (3) HTN (hypertension) Current Visit: Yes Status: Acute Plan: currently low bp. Will hold his lisinopril. He usually takes 20mg. Will restart it if his bp starts trending upwards. (4) Diabetes mellitus with neuropathy Current Visit: Yes Status: Acute Plan: he only takes rybelsus and gabapentin. Will restart the gabapentin. Will start him on sliding scale insulin Qualifiers: Diabetes mellitus type: type 2 Diabetes mellitus vermin exterminator insulin use: without vermin exterminator use Qualified Code(s): E11.40 - Type 2 diabetes mellitus with diabetic neuropathy, unspecified (5) BPH (benign prostatic hyperplasia) Current Visit: Yes Status: Acute Plan: restart his tamusolin Qualifiers: Lower urinary tract symptom presence: symptoms absent Qualified Code(s): N40.0 - Benign prostatic hyperplasia without lower urinary tract symptoms
[2021-11-28] MEDS: Meropenem 1,000 MG in NA CHLORIDE 0.9% 100 ML IV SCH ×2 (08:33→17:03)
[2021-11-28] MEDS: GABAPENTIN 300 MG CAP PO SCH ×2 (08:33→20:45)
[2021-11-28] MEDS: NA CHLORIDE 0.9% 1,000 ML IV SCH (11:04)
[2021-11-28] MEDS ORDERED: PNEUMOCOCCAL VACCINE 0.5 ML IMVAC ONE (12:00)
--- NOTE | 2021-11-28 14:35 | EKG ---
Test Date: 2021-11-26 Test Time: 15:05:38 Cadmium Plater: MEASUREMENT RESULTS: Intervals: Rate: 74 MO: 162 QRSD: 96 QT: 378 QTc: 419 [place]: P: 45 MO: 162 QRS: 23 T: 72 INTERPRETIVE STATEMENTS: Normal sinus rhythm Normal ECG Compared to ECG 10/20/2020 13:49:27 Sinus bradycardia no longer present Right bundle-branch block no longer present Electronically Signed On 11-28-21 14:31:46 CDT by Anshu Gutierrez
[2021-11-28] MEDS: TAMSULOSIN 0.4 MG SR CAP PO SCH (20:44)
[2021-11-28] MEDS: ATORVASTATIN 20 MG TAB PO SCH (20:45)
[2021-11-28 22:18] VITALS: O2SAT 96
[2021-11-29] MEDS: Meropenem 1,000 MG in NA CHLORIDE 0.9% 100 ML IV SCH ×3 (00:45→16:24)
[2021-11-29] MEDS: NA CHLORIDE 0.9% 1,000 ML IV SCH ×3 (00:45→14:30)
[2021-11-29] MEDS: HYDROCODONE/APAP 7.5/325 MG TAB PO PRN ×3 (00:53→16:24)
[2021-11-29 05:35] LABS: Absolute Lymphocytes (CBC) 0.9 K/uL (0.7-4.9); Hematocrit 36.5 % (39.6-49.0); Lymphocytes % 15.3 % (15.3-44.8); MCV 87.3 fL (80-100); MPV 8.9 fL (7.6-11.3); RBC Red Blood Cell Count 4.18 M/uL (4.33-5.43)
[2021-11-29 05:54] LABS: Albumin 2.6 g/dL (3.4-5.0); Bilirubin Total 0.4 mg/dL (0.2-1.0); Potassium 3.8 mmol/L (3.5-5.1); Protein, Total 6.1 g/dL (6.4-8.2)
[2021-11-29] MEDS: INSULIN -REGULAR HUMAN 50 UNIT/0.5 ML ML SQ SCH ×4 (07:30→20:28)
[2021-11-29] MEDS: GABAPENTIN 300 MG CAP PO SCH ×2 (08:23→20:28)
--- NOTE | 2021-11-29 08:23 | P.PN ---
Subjective Date of Service: 11/29/21 Primary Care Provider: Irma Dodson Chief Complaint: post operative infection Subjective: No new changes Review of Systems 10-point ROS is otherwise unremarkable Physical Examination - Vital Signs Temperature: 97.2 F Blood Pressure: 94/59 Pulse: 67 Respirations: 18 Pulse Ox (%): 98 - Physical Exam General: Alert, In no apparent distress HEENT: Atraumatic, PERRLA, EOMI Neck: Supple, JVD not distended Respiratory: Clear to auscultation bilaterally, Normal air movement Cardiovascular: Regular rate/rhythm, Normal S1 S2 Gastrointestinal: Normal bowel sounds, No tenderness Musculoskeletal: No tenderness Integumentary: No rashes Neurological: Normal speech, Normal tone, Normal affect Lymphatics: No axilla or inguinal lymphadenopathy - Studies Microbiology Data (last 24 hrs): 11/26/21 15:03 Clean Catch Urine Darby Count - Final >100,000 CFU/ML. 11/26/21 15:03 Clean Catch Urine - Final Escherichia Coli Esbl Assessment And Plan - Current Problems (Diagnosis) (1) UTI (urinary tract infection) due to Enterococcus Current Visit: Yes Status: Acute Plan: esbl e coli in the urine culture. Will switch to meropenenem for 2 weeks. Will order a picc line and social service consult 9.7 Patient is waiting for PICC line and home meropenem. (2) Prostatitis, acute Current Visit: Yes Status: Acute Plan: most likely post op. Have him on fluids and ceftriaxone. Will need to manage his pain better. Awaiting culture reports so we can discharge him on a specific antibiotic (3) HTN (hypertension) Current Visit: Yes Status: Acute Plan: currently low bp. Will hold his lisinopril. He usually takes 20mg. Will restart it if his bp starts trending upwards. (4) Diabetes mellitus with neuropathy Current Visit: Yes Status: Acute Plan: he only takes rybelsus and gabapentin. Will restart the gabapentin. Will start him on sliding scale insulin Qualifiers: Diabetes mellitus type: type 2 Diabetes mellitus senior living insulin use: without senior living use Qualified Code(s): E11.40 - Type 2 diabetes mellitus with diabetic neuropathy, unspecified (5) BPH (benign prostatic hyperplasia) Current Visit: Yes Status: Acute Plan: restart his tamusolin Qualifiers: Lower urinary tract symptom presence: symptoms absent Qualified Code(s): N40.0 - Benign prostatic hyperplasia without lower urinary tract symptoms Discharge Plan: Home Plan to discharge in: 48 Hours - Code Status/Comfort Care Code Status Assessed: No Physician Review: Patient Assessed, Agree with Above Assessment and Plan Critical Care: No Time Spent Managing PTS Care (In Minutes): 20
--- NOTE | 2021-11-29 14:12 | RAD REPORT ---
EXAM DESCRIPTION: RAD - Chest Single View - 11/29/2021 2:02 pm CLINICAL HISTORY: Right chest PICC line placement COMPARISON: Chest Pa And Lat (2 Views) dated 10/20/2020 FINDINGS: Portable chest was obtained following placement of a right upper extremity PICC line. The catheter tip projects over the SVC.
[2021-11-29] MEDS: ATORVASTATIN 20 MG TAB PO SCH (20:27)
[2021-11-29] MEDS: TAMSULOSIN 0.4 MG SR CAP PO SCH (20:28)
[2021-11-30] MEDS: NA CHLORIDE 0.9% 1,000 ML IV SCH ×2 (01:21→16:35)
[2021-11-30] MEDS: HYDROCODONE/APAP 7.5/325 MG TAB PO PRN ×2 (01:21→21:02)
[2021-11-30] MEDS: Meropenem 1,000 MG in NA CHLORIDE 0.9% 100 ML IV SCH ×3 (01:21→16:35)
[2021-11-30 05:14] LABS: Absolute Lymphocytes (CBC) 1.3 K/uL (0.7-4.9); Hematocrit 34.2 % (39.6-49.0); Lymphocytes % 22.3 % (15.3-44.8); MCV 86.4 fL (80-100); MPV 9.2 fL (7.6-11.3); RBC Red Blood Cell Count 3.95 M/uL (4.33-5.43)
[2021-11-30 05:31] LABS: Albumin 2.5 g/dL (3.4-5.0); Bilirubin Total 0.4 mg/dL (0.2-1.0); Potassium 3.7 mmol/L (3.5-5.1); Protein, Total 5.7 g/dL (6.4-8.2)
[2021-11-30] MEDS: INSULIN -REGULAR HUMAN 50 UNIT/0.5 ML ML SQ SCH ×4 (07:30→21:00)
[2021-11-30] MEDS: GABAPENTIN 300 MG CAP PO SCH ×2 (08:23→21:00)
--- NOTE | 2021-11-30 09:09 | P.PN ---
Subjective Date of Service: 11/30/21 Primary Care Provider: Irma Dodson Chief Complaint: post operative infection Subjective: No new changes (Picc line place) Review of Systems 10-point ROS is otherwise unremarkable Respiratory: Other (Hiccups) Physical Examination - Vital Signs Temperature: 97.1 F Blood Pressure: 128/74 Pulse: 59 Respirations: 18 Pulse Ox (%): 99 - Physical Exam General: Alert, In no apparent distress HEENT: Atraumatic, PERRLA, EOMI Neck: Supple, JVD not distended Respiratory: Clear to auscultation bilaterally, Normal air movement Cardiovascular: Regular rate/rhythm, Normal S1 S2 Gastrointestinal: Normal bowel sounds, No tenderness Musculoskeletal: No tenderness Integumentary: No rashes Neurological: Normal speech, Normal tone, Normal affect Lymphatics: No axilla or inguinal lymphadenopathy Assessment And Plan - Current Problems (Diagnosis) (1) UTI (urinary tract infection) due to Enterococcus Current Visit: Yes Status: Acute Plan: esbl e coli in the urine culture. Will switch to meropenenem for 2 weeks. Will order a picc line and social service consult 9.[address] Will await his outpatient meropenem to be arranged. (2) HTN (hypertension) Current Visit: Yes Status: Acute Plan: currently low bp. Will hold his lisinopril. He usually takes 20mg. Will restart it if his bp starts trending upwards. (3) Diabetes mellitus with neuropathy Current Visit: Yes Status: Acute Plan: he only takes rybelsus and gabapentin. Will restart the gabapentin. Will start him on sliding scale insulin Qualifiers: Diabetes mellitus type: type 2 Diabetes mellitus nursing home insulin use: without marine oil terminal superintendent use Qualified Code(s): E11.40 - Type 2 diabetes mellitus with diabetic neuropathy, unspecified (4) BPH (benign prostatic hyperplasia) Current Visit: Yes Status: Acute Plan: restart his tamusolin Qualifiers: Lower urinary tract symptom presence: unspecified whether lower urinary tract symptoms present Qualified Code(s): N40.0 - Benign prostatic hyperplasia without lower urinary tract symptoms Discharge Plan: Home Plan to discharge in: 24 Hours - Code Status/Comfort Care Code Status Assessed: No Physician Review: Patient Assessed, Agree with Above Assessment and Plan Critical Care: No Time Spent Managing PTS Care (In Minutes): 20
[2021-11-30] MEDS: ATORVASTATIN 20 MG TAB PO SCH (21:02)
[2021-11-30] MEDS: TAMSULOSIN 0.4 MG SR CAP PO SCH (21:02)
[2021-12-01] MEDS: Meropenem 1,000 MG in NA CHLORIDE 0.9% 100 ML IV SCH (01:42)
[2021-12-01] MEDS: NA CHLORIDE 0.9% 1,000 ML IV SCH (04:37)
[2021-12-01 06:12] LABS: Absolute Lymphocytes (CBC) 1.6 K/uL (0.7-4.9); Lymphocytes % 28.4 % (15.3-44.8); MCV 87.2 fL (80-100); MPV 9.2 fL (7.6-11.3); RBC Red Blood Cell Count 4.13 M/uL (4.33-5.43)
[2021-12-01 06:33] LABS: Albumin 2.5 g/dL (3.4-5.0); Bilirubin Total 0.4 mg/dL (0.2-1.0); Potassium 3.5 mmol/L (3.5-5.1); Protein, Total 5.7 g/dL (6.4-8.2)
[2021-12-01] MEDS: INSULIN -REGULAR HUMAN 50 UNIT/0.5 ML ML SQ SCH ×2 (07:30→11:30)
[2021-12-01] MEDS: GABAPENTIN 300 MG CAP PO SCH (08:10)
--- NOTE | 2021-12-01 08:38 | P.DS ---
Admission Date: 11/26/21 Discharge Date: 12/01/21 Primary Care Provider: Irma Dodson Disposition: ROUTINE DISCHARGE Discharge Condition: GOOD Reason for Admission: post operative infection - Problems (1) UTI (urinary tract infection) due to Enterococcus Current Visit: Yes Status: Acute (2) HTN (hypertension) Current Visit: Yes Status: Acute (3) Diabetes mellitus with neuropathy Current Visit: Yes Status: Acute Qualifiers: Diabetes mellitus type: type 2 Diabetes mellitus terminal block assembler insulin use: without long-term use Qualified Code(s): E11.40 - Type 2 diabetes mellitus with diabetic neuropathy, unspecified (4) BPH (benign prostatic hyperplasia) Current Visit: Yes Status: Acute Qualifiers: Lower urinary tract symptom presence: unspecified whether lower urinary tract symptoms present Qualified Code(s): N40.0 - Benign prostatic hyperplasia without lower urinary tract symptoms Brief History of Present Illness: Patient of Mrs. Dodson. H/o htn, dm2, bph. He had a prostate biopsy on . The patient started having increased pain and fevers the last day. Came to the ER. Was found to have positive urine and a wbc of 16. Was admitted for this reason for iv antibiotics. Given this is a post op diabetic. Hospital Course: Patient was admitted. Started on rocephin. Unfortunately. Was found to have ESBL E. coli in the urine. Will be sent home on iv invanz for 10 days. Have discussed the use of ibuprofen for pain in his suprapubic area. May be some prostatits Vital Signs/Physical Exam: Temp Pulse Resp BP Pulse Ox 97.3 F 61 16 132/70 95 12/01/21 08:00 12/01/21 08:00 12/01/21 08:00 12/01/21 08:00 12/01/21 08:00 General: Alert, In no apparent distress HEENT: Atraumatic, PERRLA, EOMI Neck: Supple, JVD not distended Respiratory: Clear to auscultation bilaterally, Normal air movement Cardiovascular: Regular rate/rhythm, Normal S1 S2 Gastrointestinal: Normal bowel sounds, No tenderness Musculoskeletal: No tenderness Integumentary: No rashes Neurological: Normal speech, Normal tone, Normal affect Lymphatics: No axilla or inguinal lymphadenopathy Laboratory Data at Discharge: WBC 5.50 K/uL (4.3-10.9) 12/01/21 05:35 Hgb 12.5 g/dL (13.6-17.9) L 12/01/21 05:35 Hct 36.0 % (39.6-49.0) L 12/01/21 05:35 Plt Count 150 K/uL (152-406) L D 12/01/21 05:35 PT 14.3 SECONDS (9.5-12.5) H 11/26/21 14:48 INR 1.29 11/26/21 14:48 APTT 32.0 SECONDS (24.3-36.9) 11/26/21 14:48 Sodium 141 mmol/L (136-145) 12/01/21 05:35 Potassium 3.5 mmol/L (3.5-5.1) 12/01/21 05:35 BUN 12 mg/dL (7-18) 12/01/21 05:35 Creatinine 0.66 mg/dL (0.55-1.3) 12/01/21 05:35 Glucose 104 mg/dL (74-106) 12/01/21 05:35 Total Bilirubin 0.4 mg/dL (0.2-1.0) 12/01/21 05:35 AST 81 U/L (15-37) H 12/01/21 05:35 ALT 155 U/L (12-78) H 12/01/21 05:35 Alkaline Phosphatase 67 U/L (45-117) 12/01/21 05:35 Home Medications: Lisinopril [Zestril] 20 mg PO BID 10/20/20 Semaglutide [Rybelsus] 3 mg PO DAILY 10/20/20 Codeine/APAP [Tylenol W/Codeine #3 tab] 1 tab PO Q4HP PRN #20 tab 10/24/20 Sulfamethoxazole/Trimethoprim [Bactrim Ds Tablet] 1 each PO BID #12 tablet 10/24/20 Atorvastatin Calcium [Lipitor] 20 mg PO BEDTIME 11/26/21 Tamsulosin [Flomax] 0.4 mg PO BEDTIME 11/26/21 Ibuprofen 800 mg PO BID 30 Days #60 tab 12/01/21 New Medications: Ibuprofen 800 mg PO BID 30 Days #60 tab Followup: Robe Cardenas MD [Primary Care Provider] - Time spent managing pt's care (in minutes): 30
[2021-12-01] MEDS ORDERED: ERTAPENEM NA 1 GM in NA CHLORIDE 0.9% 100 ML IVPB SCH (09:00)
[2021-12-01] MEDS ORDERED: ERTAPENEM SODIUM 1 GM VIAL IVPB SCH (09:00)
[2021-12-01 16:07] VITALS: BP 129/61; TEMP 97.7
== END 2021-12-01 16:08 | disposition home or self-care (01) | DRG 728 ==
LOC: ER 13:55 → ERHOLD 17:46 → 4TH 20:01
PROVIDERS: ADMIT Internal Medicine; ATTEND Internal Medicine
PROC: 02HV33Z Insertion of Infusion Device into Superior Vena Cava, Percutaneous Approach (ICD-10-PCS; principal; 2021-11-26)
DX: N41.0 Acute prostatitis (principal); N39.0 Urinary tract infection, site not specified; Z16.12 Extended spectrum beta lactamase (ESBL) resistance; N99.89 Other postprocedural complications and disorders of genitourinary system; B95.2 Enterococcus as the cause of diseases classified elsewhere; B96.20 Unspecified Escherichia coli [E. coli] as the cause of diseases classified elsewhere; N40.0 Benign prostatic hyperplasia without lower urinary tract symptoms; I10 Essential (primary) hypertension; E11.40 Type 2 diabetes mellitus with diabetic neuropathy, unspecified; I95.9 Hypotension, unspecified; Z79.899 Other long term (current) drug therapy; Z20.822 Contact with and (suspected) exposure to COVID-19
CPT/HCPCS: 36415; 36569; 71045; 80048; 80053; 81003; 81015; 82947; 83605; 85025; 85610; 85730; 87040; 87077; 87086; 87088; 87186; 87811; 93005; 96365; 99285; J1335; J1815; J2185; J2270; J7030

== ENCOUNTER 2021-12-23 20:41 | Inpatient (IN) | payer OTHER ==
--- OUTSIDE RECORDS SUMMARY | 2021-12-23 20:44 | XMS REPORT | Continuity of Care Document ---
:1950 Author Organization [facility] t Address [address] [place] [address] Care Team Providers Name Role Phone Jaison Roth Primary Care Physician Robe Cardenas Attending Clinician Unavailable GHULAM NEWSOME Attending Clinician Unavailable Nurse, Adc Pob Immunization Attending Clinician Unavailable Ghulma Newsome DO Attending Clinician Darlene Evans Attending Clinician Doctor Unassigned, [place] Attending Clinician Unavailable Lilian Ruby Attending Clinician Provider, [facility] Attending Clinician Unavailable Kelly Garcia Attending Clinician KELLY CABA Attending Clinician Unavailable Payers Payer Name Policy Type Policy Number Effective Date Expiration Date Jose Azuna [id number] 2020 00:00:00 SPRING Problems Condition Condition Condition Status Onset Resolution Last Treating Co mments Source Name Details Category Date Date Treatment Clinician Date No known No known Disease Unive rs active active ity of problems problems [facility] Allergies, Adverse Reactions, Alerts Allergy Allergy Status Severity Reaction(s) Onset Inactive Treating Comm ents Source Name Type Date Date Clinician NO KNOWN Drug Active Univers ALLERGIE Class ity of S [facility] Social History Social Habit Start Date Stop Date Quantity Comments Source Exposure to Not sure [facility] SARS-CoV-2 (event) Medica l Branch Tobacco use and 2020-09-18 2020-09-18 Never used [facility] exposure 00:00:00 00:00:00 Medical [place] Sex Ass[birth year] [facility] 00:00:00 00:00:00 Medical Branch Smoking Status Start Date Stop Date Source Never smoker [facility] Medical Branch Medications Ordered Filled Start Stop [...] tablet by ity o f 00:00: mouth 00 every 6 Medical (six) Branch hours as needed for Pain (scale 4-6) for up to 15 doses. Indication s: acute pain traMADoL 50 Yes 4647 50mg Take 1 Univ ers mg tablet 6-27 tablet by ity o f 00:00: mouth 00 every 6 Medical (six) Branch hours [...] by mouth ity of tablet 00:00: daily. [place] [facility] gabapentin 2020-0 Yes TAKE 1 [...] DAILY FOR Medical 90 DAYS Branch lisinopriL 1-0 Yes 20mg Take 20 mg U nivers 20 mg 6-10 by mouth 2 ity of tablet 00:00: (two) [place] 00 times Medical daily. Branch Immunizations Ordered Filled Immunization Date Status Comments [facility] e Immunization Name Name SARS-COV-2 COVID-19 2021-02-28 Completed Unive rsity of PFIZER VACCINE 00:00:00 [facility] SARS-COV-2 COVID-19 2020-06-07 Completed Unive rsity of PFIZER VACCINE 00:00:00 [facility] SARS-COV-2 COVID-19 2020-06-07 Completed Unive rsity of PFIZER VACCINE 00:00:00 [facility] SARS-COV-2 COVID-19 2020-06-07 Completed Unive rsity of PFIZER VACCINE 00:00:00 [facility] SARS-COV-2 COVID-19 2020-06-07 Completed Unive rsity of PFIZER VACCINE 00:00:00 [facility] SARS-COV-2 COVID-19 2020-06-07 Completed Unive rsity of PFIZER VACCINE 00:00:00 [facility] SARS-COV-2 COVID-19 2020-06-07 Completed Unive rsity of PFIZER VACCINE 00:00:00 [facility] SARS-COV-2 COVID-19 2020-05-17 Completed Unive rsity of PFIZER VACCINE 00:00:00 [facility] SARS-COV-2 COVID-19 2020-05-17 Completed Unive rsity of PFIZER VACCINE 00:00:00 [facility] SARS-COV-2 COVID-19 2020-05-17 Completed Unive rsity of PFIZER VACCINE 00:00:00 [facility] SARS-COV-2 COVID-19 2020-05-17 Completed Unive rsity of PFIZER VACCINE 00:00:00 [facility] SARS-COV-2 COVID-19 2020-05-17 Completed Unive rsity of PFIZER VACCINE 00:00:00 [facility] SARS-COV-2 COVID-19 2020-05-17 Completed Unive rsity of PFIZER VACCINE 00:00:00 [facility] Vital Signs Vital Name Observation Time Observation Value Comments Source Systolic blood 2020-09-19 152 mm[Hg] University of pressure 03:16:00 [facility] Diastolic blood 2020-09-19 86 mm[Hg] University o f pressure 03:16:00 [facility] Heart rate 2020-09-19 64 /min University 03:16:00 [facility] Body temperature 2020-09-19 36.44 [place] University 03:16:00 [facility] Respiratory rate 2020-09-19 18 /min Simultaneous [facility] 03:16:00 filing. User may [place] [facility] not have seen Branch previous data. Oxygen saturation 2020-09-19 96 /min Simultaneous [facility] in Arterial blood 03:16:00 filing. User may [place] [facility] by Pulse oximetry not have seen Branch previous data. Body height 2020-09-19 170.2 cm [facility] 00:39:00 [facility] Body weight 2020-09-19 93.441 kg University 00:39:00 [facility] BMI 2020-09-19 32.26 kg/m2 University 00:39:00 [facility] Systolic blood 2020-09-19 150 mm[Hg] University of pressure 00:12:00 [facility] Diastolic blood 2020-09-19 82 mm[Hg] University o f pressure 00:12:00 [facility] Heart rate 2020-09-19 69 /min University 00:07:00 [facility] Body temperature 2020-09-19 36.67 [place] [facility] 00:07:00 [facility] Respiratory rate 2020-09-19 16 /min [facility] 00:07:00 [facility] Body height 2020-09-19 170.2 cm University 00:07:00 [facility] Body weight 2020-09-19 93.441 kg [facility] 00:07:00 [facility] BMI 2020-09-19 32.26 kg/m2 University 00:07:00 [facility] Oxygen saturation 2020-09-19 97 /min [facility] in Arterial blood 00:07:00 [facility] by Pulse oximetry Branch Procedures Procedure Date / Time Performing Clinician Source Performed SARS-COV-2 COVID-19 2021-02-28 22:40:58 Doctor Unassigned, [facility] VACCINE,0.3ML,IM (PFIZER) [place] [facility] REFERRAL- REQUEST/RESPONSE 2020-09-27 05:01:00 Doctor Unassigned , [facility] [place] [facility] XR KNEE 3 VW RIGHT 2020-09-19 02:34:41 Lilian Pereira [facility] XR TIBIA FIBULA 2 VW RIGHT 2020-09-19 02:34:41 Lilian Pereira [facility] NOTICE OF PRIVACY 2020-09-19 00:36:02 Doctor Unassigned, [facility] PRACTICES [place] [facility] PATIENT FINANCIAL 2020-09-19 00:03:03 [facility] [place] [facility] NO SHOW OR MISSED 2020-09-19 00:02:30 Doctor Unassigned, [facility] APPOINTMENT POLICY [place] [facility] h ACKNOWLEDGEMENT NOTICE OF PRIVACY 2020-09-19 00:01:29 Doctor Unassigned, [facility] [place] [facility] CONSENT/REFUSAL FOR 2020-09-19 00:01:02 Doctor Unassigned, [facility] DIAGNOSIS AND TREATMENT [place] [facility] ASSIGNMENT OF BENEFITS 2020-09-19 00:00:31 Doctor Unassigned, Un [facility] [place] [facility] Encounters Start End Encounter Admission Attending Care Care Encounter Source Date/Time Date/Time Type Type Clinicians Facility Department ID 2021-11-23 Outpatient [facility] [id number] Common 10:26:04 Robe [id number] [facility] 2021-01-23 Emergency [facility] [id number] Univers 04:09:32 [facility] 2021-02-28 2021-02-28 Outpatient Byron NEWSOME [facility] [id number] Univers 16:20:00 16:20:00 GHULAM darryn [facility] 2021-02-28 2021-02-28 Imm/Inj Nurse, Adc Pob Immunization [facility] [id number] Univers 16:16:55 16:17:27 Visit Ghulam Newsome [id number] [facility] [id number] [place] MONREAL [id number] Va dical [address] 2020-10-20 2020-10-20 Letter CORRINE Evans [id number] Univers 00:00:00 00:00:00 (Out) Darlene MENDEZ [id number] i ty of HOSPITAL [phone] [facility] 043 Branch 2020-09-27 2020-09-27 Orders Doctor CORRINE [id number] Univers 00:00:00 00:00:00 Only Unassigned, VANESSA [id number] ity of [place] [facility] [phone] [facility] 009 Branch 2020-09-18 2020-09-18 Emergency [place], [facility] [id number] Univers 19:38:00 22:29:00 Lilian Box [id number] ity of [place] [id number] [place] [facility] [phone] [facility] 084 Branch 2020-09-18 2020-09-18 Urgent Provider, [facility] Urgent Care [facility] [id number] Univers 19:03:12 19:23:12 Vianey Caba [facility] [id number] ity of [place] [id number] Adrian as Professio [phone] [facility] [address] 2020-09-18 2020-09-18 Outpatient R GERTRUDIS [facility] [id number] Univers 19:00:00 19:00:[address] [facility] 2020-09-18 2020-09-18 Orders Doctor CORRINE [id number] Univers 00:00:00 00:00:00 Only Unassigned, VANESSA [id number] ity of [place] [facility] [phone] [facility] 009 Branch Results This patient has no known results.
[2021-12-23 21:46] LABS: Urine Blood 2+ (Negative); Urine Glucose Negative (Negative); Urine Protein Trace (Negative); Urine Specific Gravity 1.015 (1.005-1.030)
[2021-12-23] MEDS ORDERED: CEFTRIAXONE 1000 MG/VIAL ONE (21:50)
[2021-12-23] MEDS ORDERED: LIDOCAINE 1% MPF 30 ML VIAL ONE (21:50)
[2021-12-23] MEDS ORDERED: IBUPROFEN 400 MG TAB ONE (21:50)
[2021-12-23 22:14] LABS: Hematocrit 39.2 % (39.6-49.0); Lymphocytes % 13.2 % (15.3-44.8); MCV 89.1 fL (80-100); MPV 8.7 fL (7.6-11.3); RBC Red Blood Cell Count 4.39 M/uL (4.33-5.43)
--- NOTE | 2021-12-23 22:15 | ER ---
Nurse's Notes [facility] Name: Jaime Cid Age: 71 yrs Sex: Male : 1950 Arrival Date: 12/23/2021 Time: 20:44 Bed 16 Private MD: Diagnosis: UTI/ Urinary tract infection, site not specified;Fever, unspecified Presentation: 12/23 21:33 Chief complaint: Patient's son or daughter states: He was admitted on the of bm29 November for a UTI and was here for five days. He was sent home with antibiotics. His last dose was Nov the . He was better for a few days but then today he is having a hard time urinating and he started running a fever again. Coronavirus screen: At this time, the client does not indicate any symptoms associated with coronavirus-19. Ebola Screen: No symptoms or risks identified at this time. Initial Sepsis Screen: Does the patient meet any 2 criteria? No. Patient's initial sepsis screen is negative. Does the patient have a suspected source of infection? Yes: Dysuria/Frequency/Urgency/UTI. Risk Assessment: Do you want to hurt yourself or someone else? Patient reports no desire to harm self or others. Onset of symptoms is unknown. Care prior to arrival: Medication(s) given: Tylenol, \\T\\ 1600. 21:33 Method Of Arrival: Ambulatory 7 21:33 Acuity: ADITI 3 bm7 Triage Assessment: 21:35 General: Appears in no apparent distress. uncomfortable, Behavior is calm, cooperative, bm7 appropriate for age. Pain: Complains of pain in pelvis. EENT: No deficits noted. No signs and/or symptoms were reported regarding the EENT system. Neuro: No deficits noted. Cardiovascular: No deficits noted. Respiratory: No deficits noted. GI: No deficits noted. No signs and/or symptoms were reported involving the gastrointestinal system. : Reports burning with urination, inability to void, urinary frequency. Derm: No deficits noted. No signs and/or symptoms reported regarding the dermatologic system. Musculoskeletal: No deficits noted. No signs and/or symptoms reported regarding the musculoskeletal system. Historical: - Allergies: 21:35 No Known Allergies; bm7 - Home Meds: 21:35 Unable to obtain [Active]; bm7 - PMHx: 21:35 Hypertensive disorder; Hypercholesterolemia; Diabetes mellitus; bm7 - PSHx: 21:35 None; bm7 - Immunization history:: Adult Immunizations up to date, Client reports receiving the 2nd dose of the Covid vaccine, Client reports receiving the 1st dose of the Covid vaccine. - Social history:: Smoking status: Patient denies any tobacco usage or history of. Screenin:30 Abuse screen: Denies threats or abuse. Nutritional screening: No deficits noted. jb4 Tuberculosis screening: No symptoms or risk factors identified. Fall Risk None identified. Assessment: 21:54 Reassessment: Dr. Rodney at bedside to assess. bm7 22:30 General: Appears in no apparent distress. comfortable, Behavior is calm, cooperative, jb4 appropriate for age. Pain: Denies pain. Neuro: Level of Consciousness is awake, alert, obeys commands, Oriented to person, place, time, situation. Cardiovascular: Patient's skin is warm and dry. Respiratory: Airway is patent Respiratory effort is even, unlabored, Respiratory pattern is regular, symmetrical. GI: No signs and/or symptoms were reported involving the gastrointestinal system. : Reports burning with urination. EENT: No signs and/or symptoms were reported regarding the EENT system. Derm: Skin is intact, Skin is pink, warm \\T\\ dry. Musculoskeletal: Circulation, motion, and sensation intact. Range of motion:. Vital Signs: 21:32 BP 127 / 63; Pulse 79; Resp 16; Temp 101.0(O); Pulse Ox 97% on R/A; Weight 85.73 kg bm7 (R); Height 5 ft. 7 in. (170.18 cm); Pain 6/10; 22:12 BP 137 / 78; Pulse 73; Resp 16; Pulse Ox 99% on R/A; jb4 23:45 BP 101 / 63; Pulse 73; Resp 18; Temp 98.3(TE); Pulse Ox 99% on R/A; jb4 21:32 Body Mass Index 29.60 (85.73 kg, 170.18 cm) bm7 ED Course: 20:44 Patient arrived in ED. bp1 21:32 Arm band placed on right wrist. bm7 21:35 Triage completed. bm7 21:46 Ashwin Rodney MD is Attending Physician. kdr 21:54 Assisted to bathroom. bm7 21:54 Urine collected: clean catch specimen, cloudy. bm7 22:05 CBC with Diff Sent. ld1 22:05 Basic Metabolic Panel Sent. ld1 22:05 Inserted saline lock: 20 gauge in left antecubital area, using aseptic technique. Blood ld1 collected. 22:09 José aTylor RN is Primary Nurse. jb4 22:14 Robe Cardenas MD is Hospitalizing Provider. kdr 22:26 SARS-COV-2 RT PCR (Document "Date of Onset" if Symptomatic) Sent. zm 22:30 Patient has correct armband on for positive identification. Bed in low position. Call jb4 light in reach. Side rails up X 1. Client placed on continuous cardiac and pulse oximetry monitoring. NIBP monitoring applied. 22:30 Inserted saline lock: 18 gauge in right antecubital area, using aseptic technique. jb4 Blood collected. 22:30 Initial lab(s) drawn, by hi, sent to lab. First set of blood cultures drawn by me. jb4 22:47 No provider procedures requiring assistance completed. Second set of blood cultures jb4 drawn by me. Patient admitted, IV remains in place. Administered Medications: 21:55 Drug: Rocephin (cefTRIAXone) 1 grams Route: IM; Site: left gluteus; bm7 22:15 Follow up: Response: No adverse reaction jb4 21:55 Drug: Ibuprofen 800 mg Route: PO; bm7 12/24 00:27 Follow up: Response: No adverse reaction; Marked relief of symptoms; Temperature is jb4 decreased 12/23 23:00 Drug: Meropenem 2 grams Route: IV; Rate: calculated rate; Site: left antecubital; jb4 12/24 00:00 Follow up: Response: No adverse reaction; IV Status: Completed infusion; IV Intake: jb4 100ml Intake: 00:00 IV: 100ml; Total: 100ml. jb4 Outcome: 12/23 22:14 Decision to Hospitalize by Provider. kdr 22:30 Admitted to Tele accompanied by nurse, via wheelchair, room 422, with chart, Report jb4 called to CARLOS MANUEL Peres 22:30 Condition: stable 22:30 Discharge instructions given to patient, family, Instructed on the need for admit, Demonstrated understanding of instructions. 12/24 00:27 Patient left the ED. jb4 Signatures: Ashwin Rodney MD MD kdr José Taylor, RN RN jb4 Lisa Magaña Brittany, CARLOS MANUEL RN bm7 Isa Zamorano RN RN ld1 Kortney Steele
--- NOTE | 2021-12-23 22:15 | EDPHYS ---
Physician Documentation [facility] Name: Jaime Cid Age: 71 yrs Sex: Male : 1950 Arrival Date: 12/23/2021 Time: 20:44 Bed 16 Private MD: ED Physician Ashwin Rodney HPI: 12/24 20:58 This 71 yrs old Male presents to ER via Ambulatory with complaints of Fever. kdr 20:56 Patient had a recent admission for urinary tract infection. Patient had been sent home kdr with a PICC line and IV antibiotics for a period of time afterwards. Patient ended that treatment on 11 December. Today he started having hard time urinating again and then also spiked a fever at home. Family states that the patient has been having dysuria since prior to his admission and that that had not improved substantially at time of discharge nor through the subsequent treatment. The dysuria continues essentially unchanged.. Onset: The symptoms/episode began/occurred gradually, today. Severity of symptoms: At their worst the symptoms were mild in the emergency department the symptoms are unchanged. The patient has experienced similar episodes in the past, multiple times, chronically. The patient has been recently seen by a physician:. Historical: - Allergies: 12/23 21:35 No Known Allergies; bm7 - Home Meds: 21:35 Unable to obtain [Active]; bm7 - PMHx: 21:35 Hypertensive disorder; Hypercholesterolemia; Diabetes mellitus; bm7 - PSHx: 21:35 None; bm7 - Immunization history:: Adult Immunizations up to date, Client reports receiving the 2nd dose of the Covid vaccine, Client reports receiving the 1st dose of the Covid vaccine. - Social history:: Smoking status: Patient denies any tobacco usage or history of. ROS: 12/24 20:56 Constitutional: Negative for fever, chills, and weight loss, Eyes: Negative for injury, kdr pain, redness, and discharge, ENT: Negative for injury, pain, and discharge, Neck: Negative for injury, pain, and swelling, Cardiovascular: Negative for chest pain, palpitations, and edema, Respiratory: Negative for shortness of breath, cough, wheezing, and pleuritic chest pain, Abdomen/GI: Negative for abdominal pain, nausea, vomiting, diarrhea, and constipation, Back: Negative for injury and pain, MS/Extremity: Negative for injury and deformity, Skin: Negative for injury, rash, and discoloration, Neuro: Negative for headache, weakness, numbness, tingling, and seizure activity. Psych: Negative for depression, anxiety, suicide ideation, homicidal ideation, and hallucinations, Allergy/Immunology: Negative for hives, rash, and allergies, Endocrine: Negative for neck swelling, polydipsia, polyuria, polyphagia, and marked weight changes, Hematologic/Lymphatic: Negative for swollen nodes, abnormal bleeding, and unusual bruising. : Positive for urinary symptoms, urinary frequency, hematuria, burning with urination, difficulty urinating. Exam: 20:56 Constitutional: This is a well developed, well nourished patient who is awake, alert, kdr and in no acute distress. Head/Face: Normocephalic, atraumatic. Eyes: Pupils equal round and reactive to light, extra-ocular motions intact. Lids and lashes normal. Conjunctiva and sclera are non-icteric and not injected. Cornea within normal limits. Periorbital areas with no swelling, redness, or edema. Neck: Trachea midline, no thyromegaly or masses palpated, and no cervical lymphadenopathy. Supple, full range of motion without nuchal rigidity, or vertebral point tenderness. No Meningismus. Chest/axilla: Normal chest wall appearance and motion. Nontender with no deformity. No lesions are appreciated. Cardiovascular: Regular rate and rhythm with a normal S1 and S2. No gallops, murmurs, or rubs. Normal PMI, no JVD. No pulse deficits. Respiratory: Lungs have equal breath sounds bilaterally, clear to auscultation and percussion. No rales, rhonchi or wheezes noted. No increased work of breathing, no retractions or nasal flaring. Abdomen/GI: Soft, non-tender, with normal bowel sounds. No distension or tympany. No guarding or rebound. No evidence of tenderness throughout. Back: No spinal tenderness. No costovertebral tenderness. Full range of motion. Skin: Warm, dry with normal turgor. Normal color with no rashes, no lesions, and no evidence of cellulitis. MS/ Extremity: Pulses equal, no cyanosis. Neurovascular intact. Full, normal range of motion. Neuro: Awake and alert, GCS 15, oriented to person, place, time, and situation. Cranial nerves II-XII grossly intact. Motor strength 5/5 in all extremities. Sensory grossly intact. Cerebellar exam normal. Normal gait. Psych: Awake, alert, with orientation to person, place and time. Behavior, mood, and affect are within normal limits. Vital Signs: 12/23 21:32 BP 127 / 63; Pulse 79; Resp 16; Temp 101.0(O); Pulse Ox 97% on R/A; Weight 85.73 kg bm7 (R); Height 5 ft. 7 in. (170.18 cm); Pain 6/10; 22:12 BP 137 / 78; Pulse 73; Resp 16; Pulse Ox 99% on R/A; jb4 23:45 BP 101 / 63; Pulse 73; Resp 18; Temp 98.3(TE); Pulse Ox 99% on R/A; jb4 21:32 Body Mass Index 29.60 (85.73 kg, 170.18 cm) bm7 MDM: 22:14 Patient medically screened. kdr 12/24 20:56 Data reviewed: vital signs, nurses notes, lab test result(s), radiologic studies. kdr Counseling: I had a detailed discussion with the patient and/or guardian regarding: the historical points, exam findings, and any diagnostic results supporting the discharge/admit diagnosis, lab results, the need for further work-up and treatment in the hospital. ED course: Since patient had been recently admitted for similar problems, I called Dr. Cardenas his PCP. We discussed the patient's presentation and it was agreed that he would need readmission and return and restarting of the meropenem. Patient and family were agreeable to this treatment plan the patient was admitted all remained nontoxic and stable.. 12/23 21:47 Order name: Urine Dipstick-Ancillary EDMS 12/23 21:55 Order name: CBC with Diff bm7 12/23 21:55 Order name: Basic Metabolic Panel bm7 12/23 22:10 Order name: Blood Culture Adult (2) kdr 12/23 22:10 Order name: CMP kdr 12/23 22:10 Order name: Lactate kdr 12/23 22:10 Order name: Protime (+inr) kdr 12/23 22:10 Order name: Ptt, Activated kdr 12/23 22:14 Order name: CBC with Automated Diff EDMS 12/23 22:22 Order name: SARS-COV-2 RT PCR (Document "Date of Onset" if Symptomatic) tw5 12/23 22:27 Order name: Basic Metabolic Panel EDMS 12/23 22:52 Order name: Comprehensive Metabolic Panel EDMS 12/23 22:56 Order name: PTT, Activated Partial Thromb EDMS 12/23 22:57 Order name: Protime (+INR) EDMS 12/23 21:37 Order name: Urine Dipstick-Ancillary (obtain specimen); Complete Time: 21:54 bm7 12/23 22:10 Order name: Accucheck; Complete Time: 22:54 kdr 12/23 22:10 Order name: Cardiac monitoring; Complete Time: 23:59 kdr 12/23 22:10 Order name: EKG - Nurse/Tech; Complete Time: 23:59 kdr 12/23 22:10 Order name: IV Saline Lock - Large Bore; Complete Time: 22:54 kdr 12/23 22:10 Order name: Labs collected and sent; Complete Time: 22:54 kdr 12/23 23:12 Order name: SARS-COV-2 RT PCR EDMS 12/23 23:14 Order name: Lactate EDMS Administered Medications: 12/23 21:55 Drug: Rocephin (cefTRIAXone) 1 grams Route: IM; Site: left gluteus; 7 22:15 Follow up: Response: No adverse reaction jb4 21:55 Drug: Ibuprofen 800 mg Route: PO; 7 12/24 00:27 Follow up: Response: No adverse reaction; Marked relief of symptoms; Temperature is jb4 decreased 12/23 23:00 Drug: Meropenem 2 grams Route: IV; Rate: calculated rate; Site: left antecubital; jb4 12/24 00:00 Follow up: Response: No adverse reaction; IV Status: Completed infusion; IV Intake: jb4 100ml Disposition Summary: 12/23/21 22:14 Hospitalization Ordered Hospitalization Status: Inpatient Admission kdr Provider: Robe Cardenas Location: Telemetry/MedSurg (Inpatient) kdr Condition: Fair kdr Problem: an acute exacerbation kdr Symptoms: are unchanged kdr Bed/Room Type: Standard kdr Room Assignment: 422(12/23/21 23:27) cg Diagnosis - UTI/ Urinary tract infection, site not specified kdr - Fever, unspecified kdr Forms: - Medication Reconciliation Form kdr - SBAR form kdr Signatures: Dispatcher [employer] Ashwin Gil MD MD kdr Bre Calderon RN RN cg José Taylor RN RN jb4 Lisa Rogers RN RN bm7 Corrections: (The following items were deleted from the chart) 12/23 23:27 22:14 kdr cg
[2021-12-23] MEDS ORDERED: GLUCAGON 1 MG/VIAL IM PRN (22:19)
[2021-12-23] MEDS ORDERED: D50W 25 GM/50 ML SYRINGE IV PRN (22:19)
[2021-12-23 22:27] LABS: Potassium 3.8 mmol/L (3.5-5.1)
[2021-12-23] MEDS ORDERED: D10W 125 ML IV PRN (22:28)
[2021-12-23 22:52] LABS: Albumin 3.2 g/dL (3.4-5.0); Bilirubin Total 0.6 mg/dL (0.2-1.0); Potassium 3.8 mmol/L (3.5-5.1); Protein, Total 7.1 g/dL (6.4-8.2)
[2021-12-23 22:56] LABS: Protime INR 1.27
[2021-12-23] MEDS ORDERED: NA CHLORIDE 0.9% 100 ML IV ONE (23:01)
[2021-12-23] MEDS ORDERED: Meropenem 1000 MG/VIAL IV ONE (23:01)
[2021-12-24] MEDS ORDERED: Meropenem 1,000 MG in NA CHLORIDE 0.9% 100 ML IV SCH (01:00)
[2021-12-24] MEDS: NA CHLORIDE 0.9% 1,000 ML IV SCH ×2 (01:21→10:49)
[2021-12-24 01:48] VITALS: BMI 29.6
[2021-12-24 03:28] LABS: Absolute Lymphocytes (CBC) 1.2 K/uL (0.7-4.9); Hematocrit 37.4 % (39.6-49.0); Lymphocytes % 16.6 % (15.3-44.8); MCV 89.5 fL (80-100); MPV 9.2 fL (7.6-11.3); RBC Red Blood Cell Count 4.18 M/uL (4.33-5.43)
[2021-12-24 03:45] LABS: Potassium 3.7 mmol/L (3.5-5.1)
[2021-12-24] MEDS: INSULIN -REGULAR HUMAN 50 UNIT/0.5 ML ML SQ SCH ×4 (07:30→21:00)
[2021-12-24] MEDS: TAMSULOSIN 0.4 MG SR CAP PO SCH (07:37)
[2021-12-24] MEDS: ACETAMINOPHEN 500 MG TAB PO PRN ×3 (07:37→18:27)
[2021-12-24] MEDS: lisinopriL 20 MG TAB PO SCH ×2 (07:37→21:00)
[2021-12-24] MEDS: Meropenem 1,000 MG in NA CHLORIDE 0.9% 100 ML IV SCH ×2 (07:38→16:16)
[2021-12-24 07:48] VITALS: O2SAT 98
--- NOTE | 2021-12-24 09:55 | P.HP ---
Certification for Inpatient Patient admitted to: Inpatient With expected LOS: >2 Midnights Patient will require the following post-hospital care: None Practitioner: I am a practitioner with admitting privileges, knowledge of patient current condition, hospital course, and medical plan of care. Services: Services provided to patient in accordance with Admission requirements found in Title 42 Section 412.3 of the Code of Federal Regulations Patient History Date of Service: 12/24/21 Primary Care Provider: Jose Dodson Reason for admission: UTI History of Present Illness: Patient of our office with a history of htn and hyperlipidemia. The patient had a recent admission for Ecoli UTI. The patient was discharged with a picc line for iv meropenem. He had an end to that on the . The patient states he has been having some dysuria and dull pain. He was seen in follow up with Dr. Harmon. The patient had a positive U/A Allergies No Known Allergies Allergy (Verified 10/20/20 14:34) Home Medications: Lisinopril [Zestril] 20 mg PO BID 10/20/20 Atorvastatin Calcium [Lipitor] 20 mg PO BEDTIME 11/26/21 Tamsulosin [Flomax] 0.4 mg PO DAILY 11/26/21 Ibuprofen 800 mg PO PRN 12/24/21 - Past Medical/Surgical History Has patient received pneumonia vaccine in the past: No Diabetic: Yes - Family History Mother -: Diabetes, Cancer - Social History Smoking Status: Never smoker Alcohol use: No CD- Drugs: No Caffeine use: Yes Place of Residence: Home Review of Systems 10-point ROS is otherwise unremarkable Genitourinary: Dysuria Physical Examination - Vital Signs Temperature: 100.2 F Blood Pressure: 117/65 Pulse: 74 Respirations: 16 Pulse Ox (%): 97 - Physical Exam General: Alert, In no apparent distress HEENT: Atraumatic, PERRLA, Mucous membr. moist/pink, EOMI, Sclerae nonicteric Neck: Supple, 2+ carotid pulse no bruit, No LAD, Without JVD or thyroid abnormality Respiratory: Clear to auscultation bilaterally, Normal air movement Cardiovascular: Regular rate/rhythm, Normal S1 S2 Gastrointestinal: Normal bowel sounds, No tenderness Musculoskeletal: No tenderness Integumentary: No rashes Neurological: Normal gait, Normal speech, Normal strength at 5/5 x4 extr, Normal tone, Normal affect Lymphatics: No axilla or inguinal lymphadenopathy - Studies Laboratory Data (last 24 hrs) 12/23/21 22:05: Sodium 137, Potassium 3.8, BUN 18, Creatinine 0.99, Glucose 133 H, Total Bilirubin 0.6, AST 20, ALT 27, Alkaline Phosphatase 78 12/23/21 22:05: Sodium 138, Potassium 3.8, BUN 17, Creatinine 0.97, Glucose 136 H 12/23/21 22:05: WBC 7.80, Hgb 13.2 L, Hct 39.2 L, Plt Count 170 Assessment and Plan - Problems (Diagnosis) (1) UTI (urinary tract infection) due to Enterococcus Current Visit: No Status: Acute (2) BPH (benign prostatic hyperplasia) Current Visit: No Status: Acute Plan: will start the patient on tamusolin and consult Dr. Harmon. Qualifiers: Lower urinary tract symptom presence: symptoms present (3) HTN (hypertension) Current Visit: No Status: Acute Plan: continue lisinopril Qualifiers: Hypertension type: primary hypertension Qualified Code(s): I10 - Essential (primary) hypertension Discharge Plan: Home Plan to discharge in: 48 Hours - Advance Directives Does patient have a Living Will: No Does patient have a Durable POA for Healthcare: No - Code Status/Comfort Care Code Status Assessed: Yes Code Status: Full Code Critical Care: No Time Spent Managing Pts Care (In Minutes): 45
[2021-12-24] MEDS ORDERED: PNEUMOCOCCAL VACCINE 0.5 ML IMVAC ONE (12:00)
[2021-12-24] MEDS ORDERED: INFLUENZA VACCINE (for 6+ mo) 0.5 ML DOSE IMVAC ONE (12:00)
[2021-12-24] MEDS: ATORVASTATIN 20 MG TAB PO SCH (21:36)
[2021-12-25] MEDS ORDERED: Meropenem 1000 MG/VIAL IV ONE ×3 (00:41→08:09)
[2021-12-25] MEDS ORDERED: NA CHLORIDE 0.9% 100 ML ONE (00:54)
[2021-12-25] MEDS: NA CHLORIDE 0.9% 1,000 ML IV SCH ×2 (01:00→16:03)
[2021-12-25] MEDS: Meropenem 1,000 MG in NA CHLORIDE 0.9% 100 ML IV SCH ×3 (01:00→16:04)
[2021-12-25] MEDS: INSULIN -REGULAR HUMAN 50 UNIT/0.5 ML ML SQ SCH ×4 (07:30→20:36)
[2021-12-25] MEDS: lisinopriL 20 MG TAB PO SCH ×2 (09:15→20:36)
[2021-12-25] MEDS: TAMSULOSIN 0.4 MG SR CAP PO SCH (09:15)
--- NOTE | 2021-12-25 12:47 | RAD REPORT ---
EXAM DESCRIPTION: Single view AP chest radiograph CLINICAL HISTORY: S/P PICC insertion. COMPARISON: None. TECHNIQUE: Single view AP chest radiograph(s). FINDINGS: Trace diffuse interstitial prominence. No focal infiltrate identified. Left PICC terminate s at the superior cavoatrial junction. No pleural effusion. No pneumothorax. Nonenlarged cardiomedias tinal silhouette. No significant osseous abnormality. IMPRESSION: Well-positioned left PICC. Electronically signed by: Rebeka Garsia MD 12/25/2021 12:09 AM CDT Due to temporary technical issues with the PACS/Fluency reporting system, reports are being signed by the in house radiologists without review as a courtesy to insure prompt reporting. The interpreting radiologist is fully responsible for the content of the report.
--- NOTE | 2021-12-25 14:41 | P.PN ---
Subjective Date of Service: 12/25/21 Primary Care Provider: Jose Dodson Chief Complaint: UTI Subjective: No new changes Review of Systems 10-point ROS is otherwise unremarkable Genitourinary: Dysuria Physical Examination - Vital Signs Temperature: 97.6 F Blood Pressure: 107/53 Pulse: 68 Respirations: 16 Pulse Ox (%): 96 - Physical Exam General: Alert, In no apparent distress HEENT: Atraumatic, PERRLA, EOMI Neck: Supple, JVD not distended Respiratory: Clear to auscultation bilaterally, Normal air movement Cardiovascular: Regular rate/rhythm, Normal S1 S2 Gastrointestinal: Normal bowel sounds, No tenderness Musculoskeletal: No tenderness Integumentary: No rashes Neurological: Normal speech, Normal tone, Normal affect Lymphatics: No axilla or inguinal lymphadenopathy Assessment And Plan - Current Problems (Diagnosis) (1) UTI (urinary tract infection) due to Enterococcus Current Visit: No Status: Acute Plan: patient has gm -ve in the blood cultures. Will continue meropenemn. The family is demanding an ultrasound. Will comply with this. Consult to Dr. Jodi Harmon. (2) BPH (benign prostatic hyperplasia) Current Visit: No Status: Acute Plan: will start the patient on tamusolin and consult Dr. Harmon. Qualifiers: Lower urinary tract symptom presence: symptoms present (3) HTN (hypertension) Current Visit: No Status: Acute Plan: continue lisinopril Qualifiers: Hypertension type: primary hypertension Qualified Code(s): I10 - Essential (primary) hypertension Discharge Plan: Home Plan to discharge in: 48 Hours - Code Status/Comfort Care Code Status Assessed: No Critical Care: No Time Spent Managing PTS Care (In Minutes): 20
--- NOTE | 2021-12-25 18:26 | RAD REPORT ---
EXAM DESCRIPTION: CT - Abdomen Pelvis W/Wo Contrast - 12/25/2021 6:01 pm CLINICAL HISTORY: assess for renal stone, prostatic abscess, fistula COMPARISON: No comparisons TECHNIQUE: Biphasic, helical CT imaging of the abdomen and pelvis was performed following 100 ml non -ionic IV contrast. No oral contrast was administered. All CT scans are performed using dose optimization technique as appropriate and may include automated exposure control or mA/KV adjustment according to patient size. FINDINGS: No suspicious findings in the lung bases. The liver, spleen, and pancreas show no suspicious findings. No acute gallbladder or biliary tree fin ding. There is probably a punctate 2 mm gallstone neck. Precontrast imaging shows no obstructing or nonobstructing calculi. Prompt cortical and medullary enh ancement of the right kidney is seen. Upper pole left kidney shows an approximately 3 centimeter area of decreased enhancement on the postcontrast imaging. Patient has multiple cortical cysts of the lef t kidney none of which appear to be involved with the upper pole abnormality. Finding is most consist ent with a left-sided pyelonephritis. Abscess within the area of abnormal enhancement is not seen. Mi ld stranding in the perinephric fat. No right-sided pyelonephritis or acute right-sided parenchymal p rocess. The patient has bilateral parapelvic cysts. An enlarged lobulated prostate gland is present p rojecting into the bladder base. A primary bladder wall process is not seen. No abnormal low-density area within the prostate gland. Abscess within the prostate gland is not seen. No measurable strandin g or edema in the periprostatic fat. No identifiable fistula. No dilated bowel loops or bowel wall thickening. No appendicitis findings. A few mildly prominent flu id-filled small bowel loops are present and may reflect nonspecific ileus or enteritis. No free air, free fluid or pneumatosis. No hernia, mass or bulky lymphadenopathy. Disc and bone degenerative changes are present. L5 spondylolysis present with spondylolisthesis. IMPRESSION: Acute pyelonephritis involving upper pole left kidney. No associated abscess within the renal parenchyma or perinephric fat. Enlarged lobulated prostate gland. No abscess within the prostate tissues and no inflammatory or infe ctious changes seen in the periprostatic fat. No finding to suggest fistula formation.
[2021-12-25] MEDS: ATORVASTATIN 20 MG TAB PO SCH (20:36)
[2021-12-26] MEDS: Meropenem 1,000 MG in NA CHLORIDE 0.9% 100 ML IV SCH ×3 (00:25→17:00)
[2021-12-26] MEDS: NA CHLORIDE 0.9% 1,000 ML IV SCH (04:20)
[2021-12-26 06:48] LABS: Hematocrit 34.8 % (39.6-49.0); Lymphocytes % 15.5 % (15.3-44.8); MCV 87.5 fL (80-100); MPV 8.6 fL (7.6-11.3); RBC Red Blood Cell Count 3.98 M/uL (4.33-5.43)
[2021-12-26] MEDS: INSULIN -REGULAR HUMAN 50 UNIT/0.5 ML ML SQ SCH ×4 (07:30→21:00)
[2021-12-26 09:00] LABS: Albumin 2.6 g/dL (3.4-5.0); Bilirubin Total 0.4 mg/dL (0.2-1.0); Potassium 3.8 mmol/L (3.5-5.1); Protein, Total 6.4 g/dL (6.4-8.2)
[2021-12-26] MEDS: TAMSULOSIN 0.4 MG SR CAP PO SCH (09:16)
[2021-12-26] MEDS: lisinopriL 20 MG TAB PO SCH ×2 (09:16→21:00)
--- NOTE | 2021-12-26 10:31 | CON ---
Reason For Consultation: Sepsis, complicating prostate biopsy. History Of Present Illness: Mr. Cid is a 71-year-old gentleman with hypertension and hyperlip idemia, who underwent a prostate biopsy at the beginning of November, where he was given standard pr ophylaxis with ciprofloxacin and intramuscular gentamicin. A rectal swab for quinolone-resistant cul ture had been taken on his prior visit in October, but unfortunately, that swab was lost or the cultur e failed to be processed. As a result, on the day of his biopsy, we offered the patient the opportun ity to reschedule the biopsy or to proceed with standard prophylaxis with the ciprofloxacin as had be en prescribed. He elected to proceed with a biopsy understanding the risks that included a complicat ed infection as had been discussed on his initial consultation, as well as on the followup consultati on. A couple of days after the biopsy was completed, the patient developed fever and rigors and pres ented for hospital admission. It was Labor Day weekend and I was away; so, I communicated with Dr. Luiz garcia, who arranged admission of the patient via the emergency department. Subsequent blood cultures returned negative, but urine cultures returned and Extended spectrum beta-lactamase producing E coli, resistant to all oral and IV antimicrobials with the exception of nitrofurantoin and meropenem. He was apparently discharged on a 10-day course of either ertapenem or meropenem, with the daughter noti ng he received once daily dosing, which would suggest it may have been ertapenem. Despite the 10-day course, where his rigors did resolve, he continued to have some dysuria and relative malaise; so he was again admitted into the hospital and IV meropenem was resumed via the PICC line that had been matteo morgan previously. Blood cultures have since returned positive for gram-negative rods. Sensitivities a re still pending. Past Medical History: As above. Allergies: NO KNOWN DRUG ALLERGIES. Laboratory Analysis: On this most recent admission from 12/23/2021 revealed a white blood count of 7 .8. Creatinine was normal at 0.99. Urine culture is still pending. Physical Examination: General: The patient is alert, awake, oriented, and in no acute distress. There was no dyspnea or s ign of respiratory distress. He was lying in a stretcher comfortably, but able an ambulate easily an d was voiding without difficulty. Abdomen: Nontender. Assessment And Recommendations: This is a 71-year-old gentleman with hypertension and hyperlipidemia , status post prostate biopsy at the beginning of November given standard ciprofloxacin plus IM gent amicin prophylaxis, but complicated by ESBL E coli resistant to all oral and IV antimicrobials except for meropenem and nitrofurantoin, now with sepsis despite 10 days of prior antimicrobial therapy via PICC line, concerning for possible prostatic abscess, foreign body, or other source like fistula for persistence of infection. As such, I recommended a CT scan of the abdomen and pelvis without followed by IV contrast to assess for the presence of a prostatic abscess, upper tract calculus, or signs of fistulous disease causing this infection. I counseled the patient and his daughter that the [place] guidelines do not sup port a rectal swab fluoroquinolone resistance testing in the guidelines, though they do acknowledge t he literature, which suggest the degree of benefit. The recommendation for prophylaxis currently is only a single dose of ciprofloxacin given prior to the biopsy. The patient had multiple doses given over the course of the 3 days, but the organism was resistant. I also counseled the patient on the results of the biopsy, which were benign with acute and chronic i nflammation only identified. I explained the potential for incomplete emptying of the bladder, if in enlarging of volume, to allow continuation of the infection or at least difficulty rating him of the infection. As a result, I recommended the following: Bladder scan postvoid residual assessment. I f over 200 cc retained, recommend we place an 18-Armenian coude catheter to decompress his bladder and expedite antimicrobial recovery of his infection. If less than 200 cc residual, no need for the cath eter and we will simply have him continue the Flomax, which he was previously prescribed. We will await the results of the CT scan to determine if a prostatic abscess is present in which case , he may require more urgent operative resection of the prostate with unroofing of the abscess. 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 I also counseled the patient that despite his prostate biopsy, pathology returned negative for malign tabby, there was at least 25% chance of missed small malignancy. As a result, subsequent followup to reassess his PSA after treatment of his prostate will be arranged in about 6 months. RICHARD Voice ID: [id number] Report ID: [id number]
--- NOTE | 2021-12-26 11:27 | P.PN ---
Subjective Date of Service: 12/26/21 Primary Care Provider: Jose Dodson Chief Complaint: UTI Subjective: No new changes Review of Systems 10-point ROS is otherwise unremarkable Physical Examination - Vital Signs Temperature: 97.5 F Blood Pressure: 116/61 Pulse: 60 Respirations: 16 Pulse Ox (%): 97 - Physical Exam General: Alert, In no apparent distress HEENT: Atraumatic, PERRLA, EOMI Neck: Supple, JVD not distended Respiratory: Clear to auscultation bilaterally, Normal air movement Cardiovascular: Regular rate/rhythm, Normal S1 S2 Gastrointestinal: Normal bowel sounds, No tenderness Musculoskeletal: No tenderness Integumentary: No rashes Neurological: Normal speech, Normal tone, Normal affect Lymphatics: No axilla or inguinal lymphadenopathy Assessment And Plan - Current Problems (Diagnosis) (1) UTI (urinary tract infection) due to Enterococcus Current Visit: No Status: Acute Plan: patient has gm -ve in the blood cultures. Will continue meropenemn. The family is demanding an ultrasound. Will comply with this. Consult to Dr. Jodi Harmon. (2) BPH (benign prostatic hyperplasia) Current Visit: No Status: Acute Plan: will start the patient on tamusolin and consult Dr. Harmon. Qualifiers: Lower urinary tract symptom presence: symptoms present (3) HTN (hypertension) Current Visit: No Status: Acute Plan: continue lisinopril Qualifiers: Hypertension type: primary hypertension Qualified Code(s): I10 - Essential (primary) hypertension Discharge Plan: Home Plan to discharge in: 24 Hours - Code Status/Comfort Care Code Status Assessed: No Critical Care: No Time Spent Managing PTS Care (In Minutes): 20
--- NOTE | 2021-12-26 13:56 | EKG ---
Test Date: 2021-12-23 Test Time: 23:37:09 At Risk Paraprofessional: LOUIS MEASUREMENT RESULTS: Intervals: Rate: 73 DE: 158 QRSD: 100 QT: 286 QTc: 315 [place]: P: 34 DE: 158 QRS: 31 T: 90 INTERPRETIVE STATEMENTS: Sinus rhythm Incomplete right bundle branch block Nonspecific T wave abnormality Abnormal ECG Compared to ECG 11/26/2021 15:05:38 Incomplete right bundle-branch block now present Electronically Signed On 12-26-21 13:52:10 CDT by Anshu Gutierrez
--- NOTE | 2021-12-26 20:46 | P.PN ---
Date of Service: 12/26/21 71-year-old gentleman seen in follow-up consultation following completion of the recommended CT scan of his abdomen and pelvis without and with IV contrast yesterday. I reviewed the images of the CT as well as the report in detail. Evidence of decreased attenuation in the left upper pole renal unit suggestive of pyelonephritis likely underlying his positive blood cultures revealing persistence of the ESBL E. coli sensitive to meropenem and intermediately sensitive to Zosyn. As a result, I counseled the patient on the findings and recommended the following in discussion with Dr. Cardenas: -Continue meropenem for 21 days to treat the pyelonephritis and sepsis in the absence of prostatic abscess or signs of acute prostatitis -After 5 to 7 days, obtain renal ultrasound to assess resolution of the pyelonephritic area of the left kidney and rule out progression to left nephric abscess development -If abscess develops, for the area of pyelonephritis fails to resolve, he will require a percutaneous nephrostomy drain placed into either the collection seen (in the event of abscess) or into the left renal collecting system (if pe rsistent unresolved pyelonephritis). -Follow-up as scheduled as an outpatient with urology for cystoscopy and management of his prostatic urethral obstruction
[2021-12-26] MEDS: ATORVASTATIN 20 MG TAB PO SCH (21:31)
[2021-12-27] MEDS: Meropenem 1,000 MG in NA CHLORIDE 0.9% 100 ML IV SCH ×3 (01:06→17:38)
[2021-12-27] MEDS ORDERED: NA CHLORIDE 0.9% 250 ML IV PRN (06:18)
[2021-12-27 06:19] LABS: Absolute Lymphocytes (CBC) 1.5 K/uL (0.7-4.9); Hematocrit 40.3 % (39.6-49.0); MCV 88.1 fL (80-100); MPV 8.9 fL (7.6-11.3); RBC Red Blood Cell Count 4.58 M/uL (4.33-5.43)
[2021-12-27] MEDS ORDERED: NA CHLORIDE 0.9% 250 ML IV ONE (06:24)
[2021-12-27 06:32] LABS: Albumin 2.9 g/dL (3.4-5.0); Bilirubin Total 0.4 mg/dL (0.2-1.0); Potassium 3.9 mmol/L (3.5-5.1)
[2021-12-27] MEDS: INSULIN -REGULAR HUMAN 50 UNIT/0.5 ML ML SQ SCH ×2 (07:30→11:30)
[2021-12-27] MEDS: lisinopriL 20 MG TAB PO SCH (08:18)
[2021-12-27] MEDS: TAMSULOSIN 0.4 MG SR CAP PO SCH (09:15)
--- NOTE | 2021-12-27 11:03 | P.PN ---
Subjective Date of Service: 12/27/21 Primary Care Provider: Jose Dodson Chief Complaint: UTI Subjective: No new changes Review of Systems 10-point ROS is otherwise unremarkable Physical Examination - Vital Signs Temperature: 98.3 F Blood Pressure: 117/65 Pulse: 69 Respirations: 16 Pulse Ox (%): 95 - Physical Exam General: Alert, In no apparent distress HEENT: Atraumatic, PERRLA, EOMI Neck: Supple, JVD not distended Respiratory: Clear to auscultation bilaterally, Normal air movement Cardiovascular: Regular rate/rhythm, Normal S1 S2 Gastrointestinal: Normal bowel sounds, No tenderness Musculoskeletal: No tenderness Integumentary: No rashes Neurological: Normal speech, Normal tone, Normal affect Lymphatics: No axilla or inguinal lymphadenopathy Assessment And Plan - Current Problems (Diagnosis) (1) UTI (urinary tract infection) due to Enterococcus Current Visit: No Status: Acute Plan: patient has gm -ve in the blood cultures. Will continue meropenemn. The family is demanding an ultrasound. Will comply with this. Consult to Dr. Jodi Harmon. 12/27 will arrange 21 days total of meropenem. Will need to get an ultrasound in a week to rule out a abcess possible developing (2) BPH (benign prostatic hyperplasia) Current Visit: No Status: Acute Plan: will start the patient on tamusolin and consult Dr. Harmon. Qualifiers: Lower urinary tract symptom presence: symptoms present (3) HTN (hypertension) Current Visit: No Status: Acute Plan: continue lisinopril Qualifiers: Hypertension type: primary hypertension Qualified Code(s): I10 - Essential (primary) hypertension Discharge Plan: Home Plan to discharge in: 24 Hours - Code Status/Comfort Care Code Status Assessed: No Critical Care: No Time Spent Managing PTS Care (In Minutes): 20
[2021-12-27 16:42] VITALS: BP 102/60; TEMP 98.4
--- NOTE | 2021-12-27 16:43 | P.DS ---
Admission Date: 12/23/21 Discharge Date: 12/27/21 Primary Care Provider: Jose Dodson Disposition: ROUTINE DISCHARGE Discharge Condition: GOOD Reason for Admission: UTI - Problems (1) UTI (urinary tract infection) due to Enterococcus Current Visit: No Status: Acute (2) BPH (benign prostatic hyperplasia) Current Visit: No Status: Acute Qualifiers: Lower urinary tract symptom presence: symptoms present (3) HTN (hypertension) Current Visit: No Status: Acute Qualifiers: Hypertension type: primary hypertension Qualified Code(s): I10 - Essential (primary) hypertension Brief History of Present Illness: Patient of our office with a history of htn and hyperlipidemia. The patient had a recent admission for Ecoli UTI. The patient was discharged with a picc line for iv meropenem. He had an end to that on the . The patient states he has been having some dysuria and dull pain. He was seen in follow up with Dr. Harmon. The patient had a positive U/A Hospital Course: Patient was admitted for dysuria. He was found to have the same ESBL e. coli on culutres. Will discharge him with a picc line and plan on 21 days of meropenemn. He was seen by Dr. Harmon. CT scan showed no abcess. Some possible stranding in the left kidney. We plan to have a repeat u/s of the kidney in a week. If an abcess develops it will need to be drained with a nephrostomy tube. Vital Signs/Physical Exam: Temp Pulse Resp BP Pulse Ox 98.0 F 70 16 108/65 96 12/27/21 12:00 12/27/21 12:00 12/27/21 12:00 12/27/21 12:00 12/27/21 12:00 General: Alert, In no apparent distress HEENT: Atraumatic, PERRLA, EOMI Neck: Supple, JVD not distended Respiratory: Clear to auscultation bilaterally, Normal air movement Cardiovascular: Regular rate/rhythm, Normal S1 S2 Gastrointestinal: Normal bowel sounds, No tenderness Musculoskeletal: No tenderness Integumentary: No rashes Neurological: Normal speech, Normal tone, Normal affect Lymphatics: No axilla or inguinal lymphadenopathy Laboratory Data at Discharge: WBC 6.40 K/uL (4.3-10.9) 12/27/21 06:00 Hgb 13.8 g/dL (13.6-17.9) D 12/27/21 06:00 Hct 40.3 % (39.6-49.0) 12/27/21 06:00 Plt Count 162 K/uL (152-406) D 12/27/21 06:00 PT 14.0 SECONDS (9.5-12.5) H 12/23/21 22:30 INR 1.27 12/23/21 22:30 APTT 32.5 SECONDS (24.3-36.9) 12/23/21 22:30 Sodium 139 mmol/L (136-145) 12/27/21 06:00 Potassium 3.9 mmol/L (3.5-5.1) 12/27/21 06:00 BUN 11 mg/dL (7-18) 12/27/21 06:00 Creatinine 0.74 mg/dL (0.55-1.3) 12/27/21 06:00 Glucose 113 mg/dL (74-106) H 12/27/21 06:00 Total Bilirubin 0.4 mg/dL (0.2-1.0) 12/27/21 06:00 AST 27 U/L (15-37) 12/27/21 06:00 ALT 47 U/L (12-78) 12/27/21 06:00 Alkaline Phosphatase 73 U/L (45-117) 12/27/21 06:00 Home Medications: Lisinopril [Zestril] 20 mg PO BID 10/20/20 Atorvastatin Calcium [Lipitor] 20 mg PO BEDTIME 11/26/21 Tamsulosin [Flomax] 0.4 mg PO DAILY 11/26/21 Ibuprofen 800 mg PO PRN 12/24/21 Diet: Regular Activity: Ad carol Followup: Robe Cardenas MD [Primary Care Provider] - 1 Week Henry Harmon [ACTIVE - CAN ADMIT] - 1 Week Physician Review: Patient Assessed, Agree with Above Assessment and Plan Time spent managing pt's care (in minutes): 45
== END 2021-12-27 18:34 | disposition home or self-care (01) | DRG 872 ==
LOC: ER 20:41 → ERHOLD 22:25 → 4TH 23:44
PROVIDERS: ADMIT Internal Medicine; ATTEND Internal Medicine
DX: A41.51 Sepsis due to Escherichia coli [E. coli] (principal); Z16.12 Extended spectrum beta lactamase (ESBL) resistance; N12 Tubulo-interstitial nephritis, not specified as acute or chronic; E11.9 Type 2 diabetes mellitus without complications; I10 Essential (primary) hypertension; N40.1 Benign prostatic hyperplasia with lower urinary tract symptoms; E78.5 Hyperlipidemia, unspecified; Z79.899 Other long term (current) drug therapy; Z20.822 Contact with and (suspected) exposure to COVID-19
CPT/HCPCS: 36415; 36569; 71045; 74178; 80048; 80053; 81003; 82947; 83605; 84484; 85025; 85610; 85730; 87040; 87077; 87086; 87088; 87186; 87205; 93005; 96365; 96372; 99285; J2185; J7030; J7050; Q9967; U0003

== ENCOUNTER → 2023-01-09 | Day surgery (SDC) | payer OTHER ==
[2023-01-08 12:48] LABS: Absolute Lymphocytes (CBC) 1.9 K/uL (0.7-4.9); Hematocrit 45.9 % (39.6-49.0); Lymphocytes % 31.5 % (15.3-44.8); MCV 87.1 fL (80-100); MPV 8.8 fL (7.6-11.3); Platelets 185 thou/uL (152-406); RBC Red Blood Cell Count 5.27 M/uL (4.33-5.43)
[2023-01-08 12:58] LABS: Potassium 4.1 mEq/L (3.5-5.1)
--- NOTE | 2023-01-08 13:42 | RAD REPORT ---
[facility]AM DES[facility]08[facility]23 1:12 pm CLINICAL HISTORY: preop. Hypertension COMPARISON: Chest Single View dated 12/24/2021; Chest Single View dated 11/29/2021; Chest Pa And Lat (2 Views) dated 10/20/2020; Renal Ultrasound-Complete dated 02/09/2022; Abdomen Pelvis W/Wo Contrast d ated 12/25/2021 TECHNIQUE: Portable AP view of the chest. FINDINGS: The lungs are clear apart from stable mild interstitial thickening, favored to be chronic. No pneumothorax or effusion. The cardiomediastinal contours are unremarkable. IMPRESSION: No acute cardiopulmonary process.
[~2023-01-09] MED LIST: FENTANYL CITR 100 MCG/2 ML ONE; HYDROCODONE/APAP 7.5/325 MG TAB ONE; HYDROCODONE/APAP 7.5/325 MG TAB PO ONE; KETOROLAC 30 MG/ML INJ ONE; LIDOCAINE 2% MPF 5 ML VIAL ONE; NA CHLORIDE 0.9% 1,000 ML ONE; propofoL 200 MG/20 ML VIAL IV ONE
[2023-01-09] MEDS: CEFAZOLIN SODIUM 1 GM/VIAL ONE ×2 (11:37→12:05)
--- NOTE | 2023-01-09 12:27 | EKG ---
Test Date: 2023-01-08 Test Time: 12:43:43 Proofer Apprentice: ANSELMO MEASUREMENT RESULTS: Intervals: Rate: 69 VT: 162 QRSD: 100 QT: 382 QTc: 409 [place]: P: 28 VT: 162 QRS: -46 T: 66 INTERPRETIVE STATEMENTS: Normal sinus rhythm Incomplete right bundle branch block Left anterior fascicular block Abnormal ECG Compared to ECG 12/23/2021 23:37:09 Left anterior fascicular block now present T-wave abnormality no longer present Electronically Signed On 01-09-23 12:24:42 CDT by Anshu Gutierrez
[2023-01-09 12:59] VITALS: O2SAT 100
--- NOTE | 2023-01-09 13:07 | P.BOP ---
Preoperative diagnosis: Perineal mass 5x3cm Postoperative diagnosis: same Primary procedure: Excisional biopsy of Perineal mass 5x3cm Estimated blood loss: <10cc Specimen: mass Findings: mass Anesthesia: General Transferred to: Recovery Room Condition: Good
[2023-01-09 15:20] VITALS: BP 113/76
[2023-01-09 15:25] VITALS: TEMP 97.4
--- NOTE | 2023-01-10 19:24 | OP ---
Date of Procedure: 01/09/2023 Surgeon: Joe Steele MD Preoperative Diagnosis: Perineal mass 5 x 3 cm, tender. Postoperative Diagnosis: Perineal mass 5 x 3 cm, tender. Procedure: Excisional biopsy of tender perineal mass 5 x 3 cm. Estimated Blood Loss: Less than 10 cc. Specimen: Mass. Anesthesia: General plus local. Indication: This is the case of a 72-year-old patient who comes to us with a perineal mass away from the area of the scrotum, away from the area of the anus, right in the perineum just next to the left thigh. It is becoming bigger in size. He is concerned about it. The benefits, alternatives, and r isks of excisional biopsy were fully explained, which include, but not limited to, infection, bleedin g, damage to adjacent structures, anesthesia complication, PR, and even . The patient has obvio us tenderness in that region there is no erythema, no drainage at this time. The area of concern was marked by me and the patient in the holding room. Description Of Procedure: Patient was brought to the operating room, placed in supine position. Ane sthesia was achieved without complication. Then patient was placed in lithotomy position. The perin eal area was prepped and draped in sterile fashion. Time-out was called. Then a wedge incision was made on the skin. Incision was carried down to a deep subcutaneous tissue. We identified the mass o f concern and carefully dissected with the help of blunt dissection and sharp dissection to get the m ass in 1 unit. Hemostasis was obtained with pressure. Hemostasis also was obtained with the help of suture lines. Patient tolerated the procedure well. The area was closed with a combination of 3-0 chromic and 3-0 nylon after irrigation and hemostasis was obtained. Patient tolerated the procedure well. Patient sent to recovery room in stable condition. Sponge count and instrument counts were correct. HM/MODL Voice ID: [id number] Report ID: [id number]
--- NOTE | 2023-01-10 19:27 | DS ---
Diagnosis: Perineal mass. Procedure: Excisional biopsy of perineal mass. Disposition: Home. Condition: Stable. Activity: As tolerated. No lifting. Plan: Keep area dry for 48 hours, then may shower and then cover the area with triple antibiotics an d gauze. Follow up in my office in a week. CASSANDRA/IHSAN Voice ID: [id number] Report ID: [id number]
== END | disposition home or self-care (01) ==
LOC: OR 09:07
PROVIDERS: ATTEND Surgery
PROC: 0JBB0ZZ Excision of Perineum Subcutaneous Tissue and Fascia, Open Approach (ICD-10-PCS; principal; 2023-01-09 12:00)
DX: L08.89 Other specified local infections of the skin and subcutaneous tissue (principal); I96 Gangrene, not elsewhere classified
CPT/HCPCS: 11426; 93005; 85025; 80048; 36415; 82947 ×2; 88304; 71046; J2704; J2001; J3010; J7030; J0690; 88305